=== PATIENT | male | born 1955 | race Caucasian/White ===

== ENCOUNTER 2023-02-08 06:55 | Day surgery (SDC) | payer BC, OTHER ==
[2023-02-08] MEDS ORDERED: Epinephrine Preservative Free 1 MG/ML IJ ONE (06:56)
[2023-02-08] MEDS ORDERED: BETADINE 5% OPHTHALMIC 30 ML OP ONE (07:00)
[2023-02-08] MEDS ORDERED: cefUROXime sodium 0.005 GM in Sodium Chloride Flush 30 ML*** 0.5 ML IJ ONE (07:00)
[2023-02-08] MEDS ORDERED: NON-FORMULARY ITEM OP ONE (07:00)
[2023-02-08] MEDS ORDERED: TETRACAINE 0.5% STERI-UNIT SOL OP ONE ×2 (07:00)
[2023-02-08] MEDS ORDERED: Ak-Dilate OPHTHALMIC*** 1.065 ML, Cyclogyl 1% OPHTH SOL 1.065 ML, GATIFLOXACIN 0.5% OPH... OP ONE ×4 (07:00)
[2023-02-08] MEDS ORDERED: Lactated Ringers 1,000 ML IV SCH (07:00)
[2023-02-08] MEDS ORDERED: Lactated Ringers 1,000 ML IV ONE (07:14)
[2023-02-08] MEDS ORDERED: DIPRIVAN 200 MG/20 ML IV ONE ×2 (08:36→10:05)
[2023-02-08] MEDS ORDERED: Zofran 4 MG/2 ML VIAL IV PRN (09:00)
[2023-02-08] MEDS ORDERED: ACETAZOLAMIDE 250 MG TABLET PO ONE (09:00)
[2023-02-08 10:33] VITALS: O2SAT 94
[2023-02-08 10:46] VITALS: BP 134/83; PULSE 71
== END 2023-02-08 10:45 | disposition home or self-care (01) ==
LOC: SDC 06:55
PROVIDERS: ATTEND Ophthalmology
DX: H25.811 Combined forms of age-related cataract, right eye (principal); E11.9 Type 2 diabetes mellitus without complications
CPT/HCPCS: 82947; C1780; J0171; J2704; A9270-GY

== ENCOUNTER 2023-03-08 07:15 | Day surgery (SDC) | payer OTHER ==
[~2023-03-08 07:15] MED LIST: ACETAZOLAMIDE 250 MG TABLET PO ONE; Ak-Dilate OPHTHALMIC*** 1.065 ML, Cyclogyl 1% OPHTH SOL 1.065 ML, GATIFLOXACIN 0.5% OPH... OP ONE; BETADINE 5% OPHTHALMIC 30 ML OP ONE; Lactated Ringers 1,000 ML IV SCH; NON-FORMULARY ITEM OP ONE; TETRACAINE 0.5% STERI-UNIT SOL OP ONE; Zofran 4 MG/2 ML VIAL IV PRN; cefUROXime sodium 0.005 GM in Sodium Chloride Flush 30 ML*** 0.5 ML IJ ONE
[2023-03-08] MEDS ORDERED: Lactated Ringers 1,000 ML IV ONE (08:14)
[2023-03-08] MEDS ORDERED: DIPRIVAN 200 MG/20 ML IV ONE (09:57)
[2023-03-08] MEDS ORDERED: SUBLIMAZE 100 MCG/2 ML ONE (09:57)
[2023-03-08] MEDS ORDERED: Versed 2 MG/2 ML Injection ONE (09:57)
[2023-03-08] MEDS ORDERED: Xylocaine-Mpf 2% 5 Ml Vial ONE (09:57)
[2023-03-08 10:38] VITALS: BP 107/70; PULSE 60; O2SAT 96
== END 2023-03-08 10:45 | disposition home or self-care (01) ==
LOC: SDC 07:15
PROVIDERS: ATTEND Ophthalmology
DX: H25.812 Combined forms of age-related cataract, left eye (principal); E11.9 Type 2 diabetes mellitus without complications
CPT/HCPCS: 82947; C1780; J2250; J2704; J3010; A9270-GY

== ENCOUNTER 2023-05-23 09:05 | Day surgery (SDC) | payer OTHER ==
--- NOTE | 2023-05-23 08:12 | HP ---
DATE OF SURGERY: 05/23/2023 HISTORY OF PRESENT ILLNESS: The patient is a 67-year-old last colonoscopy eight to ten years ago. No bloody stools. No change in bowel habits. No new pain. Family history negative for colon cancer. The patient is in need of screening colonoscopy. PAST MEDICAL HISTORY: Diabetes mellitus type II, hyperlipidemia, gout. PAST SURGICAL HISTORY: Cholecystectomy. Cataract. Colonoscopy. Back surgery. MEDICATIONS: Aspirin, metformin, Lantus, Jardiance, atorvastatin, Alogliptin, fish oil, allopurinol. ALLERGIES: NKDA. FAMILY HISTORY: Negative for colon cancer. SOCIAL HISTORY: History of smoking, occasional alcohol use. REVIEW OF SYSTEMS: Fourteen systems reviewed. No chest pain or palpitations. Other systems negative or noncontributory as above and per preadmission questionnaire. PHYSICAL EXAMINATION: Height 5'7". BMI 28. GENERAL: No acute distress. HEENT: Sclerae nonicteric. EOMI. Oral mucous membranes moist. NECK: No JVD. CHEST: Equal excursion, nonlabored breathing. CVS: Regular rate and rhythm. ABDOMEN: Soft. No peritoneal signs. EXTREMITIES: No significant edema. NEURO: Alert, oriented, moving extremities symmetrically. RECTAL: Deferred timed to endoscopy exam. PSYCH: Appropriate mood and affect. SKIN: Dry. IMPRESSION: Need screening colonoscopy. I feel the patient is a candidate. Shown the risk sheet explained the procedure in detail including but not limited to bleeding or infection, risk of bowel injury or perforation, risk of missed, nondiagnosis or incomplete exam possibly requiring barium enema, other studies or procedures. General risk of anesthesia or sedation, risk of bowel prep but not limited to. Consent was obtained. Will proceed with outpatient screening colonoscopy. Allow patient to continue medications for his diabetes, lipids and gout.
[2023-05-23 09:24] VITALS: RESP 18
[2023-05-23] MEDS ORDERED: Lactated Ringers 1,000 ML IV ONE (09:52)
[2023-05-23] MEDS ORDERED: Lactated Ringers 1,000 ML IV SCH (10:00)
[2023-05-23] MEDS ORDERED: Versed 2 MG/2 ML Injection ONE (10:49)
[2023-05-23] MEDS ORDERED: DIPRIVAN 200 MG/20 ML IV ONE (10:49)
[2023-05-23 11:39] VITALS: O2SAT 98
[2023-05-23 11:49] VITALS: TEMP 97
[2023-05-23 12:06] VITALS: BP 124/69; PULSE 59
--- NOTE | 2023-05-23 13:22 | OP ---
SURGERY DATE/TIME: 05/23/2023 1053 PREOPERATIVE DIAGNOSIS: Need for screening colonoscopy. POSTOPERATIVE DIAGNOSES: 1) Diverticulosis left colon. 2) Patchy area of inflammation versus prep irritation sigmoid colon. 3) Good prep. 4) ASA Class II. 5) Withdrawal time was approximately 7 minutes. PROCEDURES: Colonoscopy to cecum with random cold biopsies patchy area of inflammation versus prep irritation sigmoid colon. SURGEON: Dr. Juan Bearden. ANESTHESIA: MAC. ESTIMATED BLOOD LOSS: Minimal. INDICATIONS: As noted above. Risks and benefits explained in detail but not limited to and consent obtained. DESCRIPTION OF PROCEDURE AND FINDINGS: The patient is taken to the endoscopy room. MAC anesthesia induced. After official time out and no disagreement with planned procedure, digital rectal exam did not reveal any rectal masses. He did have some small internal hemorrhoids. Video colonoscope inserted and passed up through the tortuous sigmoid, descending, transverse and ascending colon around to the cecum. Appendiceal orifice and ileocecal valve well visualized and photo documented. Prep overall was good. There was a little bit of liquidy stool that was suctioned as clear as possible. The scope is carefully withdrawn over the next 7 minutes. There were no signs of any large polyps, masses or obstructing lesions. He did have some patchy areas and a little petechial red spots in the sigmoid colon. Patchy area of inflammation versus prep irritation some random cold biopsies were taken in this area. Otherwise, he had some diverticulosis in the left colon and some small and large diverticula in the left colon. There were no signs of any large polyps, masses or any other obstructing lesion. There were some small internal hemorrhoids in the rectum. The scope is withdrawn. The patient tolerated the procedure well. Findings discussed with the family out in the waiting area. I will see him back in the office next week.
== END 2023-05-23 12:08 | disposition home or self-care (01) ==
LOC: SDC 09:05
PROVIDERS: ATTEND Surgery
DX: Z12.11 Encounter for screening for malignant neoplasm of colon (principal); K57.30 Diverticulosis of large intestine without perforation or abscess without bleeding; E11.9 Type 2 diabetes mellitus without complications; K64.8 Other hemorrhoids; K63.5 Polyp of colon
CPT/HCPCS: 82947; J2250; J2704

== ENCOUNTER 2023-09-08 18:00 | Emergency (ER) | payer OTHER ==
[2023-09-08 18:22] VITALS: TEMP 97.7
--- NOTE | 2023-09-08 18:30 | ERPHSYRPT ---
- History of Present Illness Time Seen by Provider: 09/08/23 18:30 Source: patient Exam Limitations: no limitations Patient Subjective Stated Complaint: Pt states "I stepped on a nail yesterday." Triage Nursing Assessment: Pt presented alert and oriented X3, skin pwd. Pt has small puncture wound noted to right dorsal foot, no bleeding noted. Physician History: This is a 67-year-old white male patient who is diabetic and has not had a tetanus injection in over 10 years and presents to the emergency department a day after stepping on a nail. Patient is concerned of him getting an infection. He does not feel there is any retained nail present. Again, he is diabetic, has history of gout, has a history of hyperlipidemia. Method of Injury: other (Stepped on a nail yesterday.) Occurred: yesterday Quality: aching Severity of Pain-Max: mild Severity of Pain-Current: mild Lower Extremities Pain: foot: right (Plantar surface) Modifying Factors: Improves With: nothing Associated Symptoms: none Allergies/Adverse Reactions: No Known Drug Allergies Allergy (Verified 04/28/23 12:45) Home Medications: Allopurinol 300 mg [Zyloprim 300 mg] 1 tab PO DAILY 02/02/23 [History] Atorvastatin Calcium [Lipitor 40Mg] 1 tab PO DAILY 02/02/23 [History] Insulin Glargine [Lantus Insulin] See Rx Instructions .ROUTE .COMPLEX 02/02/23 [History] Loperamide HCl 2 mg [Imodium 2 mg] 1 tab PO DAILY 02/02/23 [History] Metformin HCl [Metformin ER Osmotic] 1 tab PO BID 02/02/23 [History] [place]-3S/Dha/Epa/Fish Oil [Fish Oil [place]-3 Softgel] 2 cap PO BID 02/02/23 [History] Alogliptin Benzoate [Alogliptin] 1 tab PO DAILY 04/28/23 [History] Aspirin EC 81 mg [Ecotrin 81 mg] 81 mg PO DAILY 04/28/23 [History] Hx Tetanus, Diphtheria Vaccination/Date Given: No Hx Influenza Vaccination/Date Given: No Hx Pneumococcal Vaccination/Date Given: No Immunizations Up to Date: No Travel Risk - International Travel Have you traveled outside of the country in past 3 weeks: No - Coronavirus Screening Are you exhibiting any of the following symptoms?: No Close contact with a COVID-19 positive Pt in past 14-21 Days: No - Vaccine Status Have you recieved a Covid-19 vaccination: Yes Program Support Assistant: Moderna - Vaccination Dates Date of 2cond Vaccination (if applicable): 2020 - Review of Systems Constitutional: No Symptoms Eyes: No Symptoms Ears, Nose, & Throat: No Symptoms Respiratory: No Symptoms Cardiac: No Symptoms Abdominal/Gastrointestinal: No Symptoms Genitourinary Symptoms: No Symptoms Musculoskeletal: No Symptoms Skin: Other (Right foot plantar surface nail entrance site) Neurological: No Symptoms Psychological: No Symptoms Endocrine: No Symptoms Hematologic/Lymphatic: No Symptoms Immunological/Allergic: No Symptoms All Other Systems: Reviewed and Negative - Past Medical History Pertinent Past Medical History: Yes Neurological History: No Pertinent History ENT History: No Pertinent History Cardiac History: No Pertinent History Respiratory History: Sleep Apnea Endocrine Medical History: Diabetes Type II Musculoskeletal History: No Pertinent History GI Medical History: Gallbladder Disease History: No Pertinent History Psycho-Social History: No Pertinent History Male Reproductive Disorders: No Pertinent History - Past Surgical History Past Surgical History: Yes Neuro Surgical History: No Pertinent History Cardiac: No Pertinent History Respiratory: No Pertinent History Gastrointestinal: Cholecystectomy Genitourinary: No Pertinent History Musculoskeletal: Orthopedic Surgery Male Surgical History: No Pertinent History Other Surgical History: back surgery 2009 - Social History Smoking Status: Light tobacco smoker Exposure to second hand smoke: Yes Drug Use: none Patient Lives Alone: Yes - Nursing Vital Signs Nursing Vital Signs: Initial Vital Signs Temperature 97.7 F 09/08/23 18:18 Pulse Rate 74 09/08/23 18:18 Respiratory Rate 20 09/08/23 18:18 Blood Pressure 101/64 09/08/23 18:18 O2 Sat by Pulse Oximetry 97 09/08/23 18:18 Pain Scale Pain Intensity 2 - Physical Exam General Appearance: no apparent distress, alert Eyes, Ears, Nose, Throat Exam: normal ENT inspection, moist mucous membranes Neck Exam: normal inspection, non-tender, supple, full range of motion Cardiovascular/Respiratory Exam: chest non-tender, no respiratory distress Gastrointestinal/Abdominal Exam: non-tender Back Exam: normal inspection, normal range of motion, vertebral tenderness, No CVA tenderness Hips Exam: bilateral: non-tender, normal inspection, normal range of motion, no evidence of injury Legs Exam: bilateral leg: non-tender, normal inspection, normal range of motion, no evidence of injury Knees Exam: bilateral knee: non-tender, normal inspection, normal range of motion, no evidence of injury Ankle Exam: bilateral ankle: non-tender, normal inspection, normal range of motion, no evidence of injury Foot Exam: right foot: soft tissue tenderness (Plantar surface lateral aspect base of fifth digit. Nail entrance site without gross infection. No visible foreign body), left foot: non-tender, normal inspection, no evidence of injury, bilateral foot: normal range of motion Neuro/Tendon Exam: normal sensation, normal motor functions, normal tendon functions, responds to pain, no evidence tendon injury Mental Status Exam: alert, oriented x 3, cooperative Skin Exam: other (See above) SpO2 Interpretation: normal SpO2: 97 O2 Delivery: Room Air - Course Nursing assessment & vital signs reviewed: Yes Ordered Tests: Active Orders 24 hr Category Date Time Status FOOT (MINIMUM 3 VIEWS) Stat Exams 09/08/23 18:30 Taken - Progress Progress: unchanged Progress Note: 09/08/23 18:53 This medical issue is 1 of low complexity. Level of complexity in the work-up performed is based on review of the patient's past medical history, review the patient's medication list, review the patient drug allergy list, history present illness and physical findings on examination. The work-up in this patient includes injection of Adacel, provide the patient with oral Keflex, x-ray of right foot. X-ray of right foot was interpreted by me. There is no evidence of any acute fracture or dislocation. There is no evidence of any radiopaque foreign body. Counseled pt/family regarding: diagnosis, need for follow-up, rad results Medical Desision Making - Diagnostic Testing Diagnostic test were ordered, analyzed, and reviewed by me: Yes Radiological Interpretation: Interpreted by me - Risk of complications The pt has a mod risk of morbidity or mortality based on: Need for prescription drug management - Departure Departure Disposition: Home Clinical Impression: Right foot injury Condition: Stable Critical Care Time: No Referrals: [facility]OSPITAL,'[facility] [Primary Care Provider] - Follow up/PCP as directed Additional Instructions: Soak right foot in warm soapy water or Epsom salt twice a day. Do not apply lotions ointments or creams to the nail penetration site. Take your antibiotics as prescribed. Use Tylenol and ibuprofen for pain control if there are no contraindications. Follow-up with your primary care provider in the next 3 to 5 days for reevaluation. Prescriptions: Cephalexin Mh 500 mg [Keflex 500 mg] 500 mg PO TID #21 cap
[2023-09-08] MEDS ORDERED: Adacel Vial IM ONE ×2 (18:52→18:55)
[2023-09-08] MEDS ORDERED: KEFLEX 500 MG PO ONE (18:52)
[2023-09-08] MEDS ORDERED: KEFLEX 500 MG ONE (18:54)
[2023-09-08 19:24] VITALS: BP 123/62; PULSE 75; RESP 20; O2SAT 97
--- NOTE | 2023-09-09 08:42 | XRAY ---
Indication: Stepped on nail. Comparison: None 3 nonweightbearing views right foot demonstrates osteopenia, small posterior/plantar heel spurs, and minimal scattered vascular calcifications. No other bony, articular, or soft tissue abnormalities.
== END 2023-09-08 19:13 | disposition home or self-care (01) ==
LOC: ED 18:00
DX: S91.331A Puncture wound without foreign body, right foot, initial encounter (principal); W22.09XA Striking against other stationary object, initial encounter; W45.0XXA Nail entering through skin, initial encounter; E11.9 Type 2 diabetes mellitus without complications; E78.5 Hyperlipidemia, unspecified; Z79.4 Long term (current) use of insulin; Z79.84 Long term (current) use of oral hypoglycemic drugs; Z79.899 Other long term (current) drug therapy; Z72.0 Tobacco use; Z23 Encounter for immunization
CPT/HCPCS: 73630; 90471; 90715; 99283; A9270-GY

== ENCOUNTER 2023-09-12 15:18 | Observation (INO) | payer OTHER ==
--- NOTE | 2023-09-12 15:29 | ERPHSYRPT ---
- History of Present Illness Time Seen by Provider: 09/12/23 15:28 Source: patient Exam Limitations: no limitations Physician History: This is a 67-year-old white male patient known to me who presented to the emergency department on 09/08/2023 and I evaluated him at that time. At that time he had stepped on a nail the day before on his right plantar surface. We performed an x-ray which showed no fracture and no dislocation and no radiopaque foreign body present. Patient received a dose of Keflex antibiotics here in the emergency department but did not fill the remainder of the prescription until 24 hours later. Patient states that the foot seems to be doing fine until Tuesday when he noticed some redness that is increased despite antibiotic therapy of the subsequent 2 days which is today. He does have some pain sensation present there is increased redness and swelling to the right foot. Patient has a history of diabetes, gout and hyperlipidemia. Occurred: days ago (5) Quality: sharpness Severity of Pain-Max: mild Severity of Pain-Current: mild Lower Extremities Pain: foot: right Modifying Factors: Improves With: nothing Associated Symptoms: none Allergies/Adverse Reactions: No Known Drug Allergies Allergy (Verified 09/12/23 15:32) Home Medications: Allopurinol 300 mg [Zyloprim 300 mg] 1 tab PO DAILY 02/02/23 [History] Atorvastatin Calcium [Lipitor 40Mg] 1 tab PO DAILY 02/02/23 [History] Insulin Glargine [Lantus Insulin] See Rx Instructions .ROUTE .COMPLEX 02/02/23 [History] Loperamide HCl 2 mg [Imodium 2 mg] 1 tab PO DAILY 02/02/23 [History] Metformin HCl [Metformin ER Osmotic] 1 tab PO BID 02/02/23 [History] [place]-3S/Dha/Epa/Fish Oil [Fish Oil [place]-3 Softgel] 2 cap PO BID 02/02/23 [H istory] Alogliptin Benzoate [Alogliptin] 1 tab PO DAILY 04/28/23 [History] Aspirin EC 81 mg [Ecotrin 81 mg] 81 mg PO DAILY 04/28/23 [History] Hx Tetanus, Diphtheria Vaccination/Date Given: No Hx Influenza Vaccination/Date Given: No Hx Pneumococcal Vaccination/Date Given: No Travel Risk - International Travel Have you traveled outside of the country in past 3 weeks: No - Coronavirus Screening Are you exhibiting any of the following symptoms?: No Close contact with a COVID-19 positive Pt in past 14-21 Days: No - Vaccine Status Have you recieved a Covid-19 vaccination: Yes Program Paraprofessional: Moderna - Vaccination Dates Date of 2cond Vaccination (if applicable): 2020 - Review of Systems Constitutional: No Symptoms Eyes: No Symptoms Ears, Nose, & Throat: No Symptoms Respiratory: No Symptoms Cardiac: No Symptoms Abdominal/Gastrointestinal: No Symptoms Genitourinary Symptoms: No Symptoms Musculoskeletal: No Symptoms Skin: Cellulitis, Other Neurological: No Symptoms (Diabetic foot infection) Psychological: No Symptoms Endocrine: No Symptoms Hematologic/Lymphatic: No Symptoms Immunological/Allergic: No Symptoms All Other Systems: Reviewed and Negative - Past Medical History Pertinent Past Medical History: Yes Neurological History: No Pertinent History ENT History: No Pertinent History Cardiac History: No Pertinent History Respiratory History: Sleep Apnea Endocrine Medical History: Diabetes Type II Musculoskeletal History: No Pertinent History GI Medical History: Gallbladder Disease History: No Pertinent History Psycho-Social History: No Pertinent History Male Reproductive Disorders: No Pertinent History - Past Surgical History Past Surgical History: Yes Neuro Surgical History: No Pertinent History Cardiac: No Pertinent History Respiratory: No Pertinent History Gastrointestinal: Cholecystectomy Genitourinary: No Pertinent History Musculoskeletal: Orthopedic Surgery Male Surgical History: No Pertinent History Other Surgical History: back surgery 2009 - Social History Smoking Status: Light tobacco smoker Exposure to second hand smoke: Yes Drug Use: none Patient Lives Alone: Yes - Nursing Vital Signs Nursing Vital Signs: Initial Vital Signs Temperature 97.7 F 09/12/23 15:33 Pulse Rate 78 09/12/23 15:33 Respiratory Rate 18 09/12/23 15:33 Blood Pressure 162/92 09/12/23 15:33 O2 Sat by Pulse Oximetry 98 09/12/23 15:33 Pain Scale Pain Intensity 3 - Physical Exam General Appearance: no apparent distress, alert Eyes, Ears, Nose, Throat Exam: normal ENT inspection, moist mucous membranes Neck Exam: normal inspection, non-tender, supple, full range of motion Cardiovascular/Respiratory Exam: chest non-tender, no respiratory distress Gastrointestinal/Abdominal Exam: non-tender Back Exam: normal inspection, normal range of motion, No CVA tenderness, No vertebral tenderness Hips Exam: bilateral: non-tender, normal inspection, normal range of motion, no evidence of injury Legs Exam: bilateral leg: non-tender, normal inspection, normal range of motion, no evidence of injury Knees Exam: bilateral knee: non-tender, normal inspection, normal range of mo tion, no evidence of injury Ankle Exam: bilateral ankle: non-tender, normal inspection, normal range of motion, no evidence of injury Foot Exam: right foot: infection, soft tissue tenderness, swelling, other (No drainage and no odor present.), left foot: non-tender, normal inspection, normal range of motion, no evidence of injury Neuro/Tendon Exam: normal motor functions, normal tendon functions, no evidence tendon injury, sensory deficit (Patient likely has degree of peripheral neuropathy secondary to longstanding diabetes) Mental Status Exam: alert, oriented x 3, cooperative Skin Exam: other SpO2 Interpretation: normal (Colitis right foot) O2 Delivery: Room Air - Course Nursing assessment & vital signs reviewed: Yes Ordered Tests: Active Orders 24 hr Category Date Time Status IV Insertion STAT Care 09/12/23 15:36 Active Pulse Oximetry (ED) STAT Care 09/12/23 15:36 Active BLOOD CULTURE Stat Lab 09/12/23 16:08 Received CBC W DIFF Stat Lab 09/12/23 15:50 Completed CMP Stat Lab 09/12/23 15:50 Completed Lactic Acid Stat Lab 09/12/23 16:00 Completed PROCALCITONIN Stat Lab 09/12/23 15:50 Completed Transfer Order Routine Transfer 09/12/23 Ordered Lab/Rad Data: Laboratory Result Diagrams 09/12/23 15:50 09/12/23 15:50 Laboratory Results 09/12/23 09/12/23 09/12/23 Range/Units 16:00 15:50 15:50 WBC (4.0-10.5) x10^3/uL RBC (4.1-5.6) x10^6/uL Hgb (12.5-18.0) g/dL Hct (42-50) % MCV (78-100) fL MCH (26-32) pg MCHC (32-36) g/dL RDW (11.5-14.0) % Plt Count (150-450) x10^3/uL MPV (7.5-11.0) fL Gran % (36.0-66.0) % Immature Gran % (Auto) (0.00-0.4) % Nucleat RBC Rel Count (0.00-0.1) % Eos # (Auto) (0-0.5) x10^3/uL Immature Gran # (Auto) (0.00-0.03) x10^3u/L Absolute Lymphs (auto) (1.0-4.6) x10^3/uL Absolute Monos (auto) (0.0-1.3) x10^3/uL Absolute Nucleated RBC (0.00-0.01) x10^3u/L Lymphocytes % (24.0-44.0) % Monocytes % (0.0-12.0) % Eosinophils % (0.00-5.0) % Basophils % (0.0-0.4) % Absolute Granulocytes (1.4-6.9) x10^3/uL Basophils # (0-0.4) x10^3/uL Sodium 141 (137-145) mmol/L Potassium 4.4 (3.5-5.1) mmol/L Chloride 109 H (98-107) mmol/L Carbon Dioxide 19 L (22-30) mmol/L Anion Gap 17.4 H (5-15) MEQ/L BUN 19 (9-20) mg/dL Creatinine 0.90 (0.66-1.25) mg/dL Estimated GFR 93.6 ML/MIN Glucose 164 H (74-106) mg/dL Lactic Acid 1.0 (0.4-2.0) Calcium 9.6 (8.4-10.2) mg/dL Total Bilirubin 0.80 (0.2-1.3) mg/dL AST 28 (17-59) U/L ALT 21 (0-50) U/L Alkaline Phosphatase 95 (38-126) U/L Serum Total Protein 8.0 (6.3-8.2) g/dL Albumin 4.3 (3.5-5.0) g/dL Procalcitonin 0.123 H (0.030-0.080) ng/mL 09/12/23 Range/Units 15:50 WBC 9.8 (4.0-10.5) x10^3/uL RBC 4.00 L (4.1-5.6) x10^6/uL Hgb 13.1 (12.5-18.0) g/dL Hct 38.3 L (42-50) % MCV 95.8 (78-100) fL MCH 32.8 H (26-32) pg MCHC 34.2 (32-36) g/dL RDW 13.7 (11.5-14.0) % Plt Count 223 (150-450) x10^3/uL MPV 10.4 (7.5-11.0) fL Gran % 62.8 (36.0-66.0) % Immature Gran % (Auto) 0.3 (0.00-0.4) % Nucleat RBC Rel Count 0.0 (0.00-0.1) % Eos # (Auto) 0.22 (0-0.5) x10^3/uL Immature Gran # (Auto) 0.03 (0.00-0.03) x10^3u/L Absolute Lymphs (auto) 2.46 (1.0-4.6) x10^3/uL Absolute Monos (auto) 0.89 (0.0-1.3) x10^3/uL Absolute Nucleated RBC 0.00 (0.00-0.01) x10^3u/L Lymphocytes % 25.1 (24.0-44.0) % Monocytes % 9.1 (0.0-12.0) % Eosinophils % 2.2 (0.00-5.0) % Basophils % 0.5 (0.0-0.4) % Absolute Granulocytes 6.17 (1.4-6.9) x10^3/uL Basophils # 0.05 (0-0.4) x10^3/uL Sodium (137-145) mmol/L Potassium (3.5-5.1) mmol/L Chloride (98-107) mmol/L Carbon Dioxide (22-30) mmol/L Anion Gap (5-15) MEQ/L BUN (9-20) mg/dL Creatinine (0.66-1.25) mg/dL Estimated GFR ML/MIN Glucose (74-106) mg/dL Lactic Acid (0.4-2.0) Calcium (8.4-10.2) mg/dL Total Bilirubin (0.2-1.3) mg/dL AST (17-59) U/L ALT (0-50) U/L Alkaline Phosphatase (38-126) U/L Serum Total Protein (6.3-8.2) g/dL Albumin (3.5-5.0) g/dL Procalcitonin (0.030-0.080) ng/mL - Progress Progress: unchanged Progress Note: 09/12/23 16:38 This patient's medical issue is 1 of high complexity. Level complexity in the work-up performed is based on the review of the patient's past medical history, review of the patient's medication list, review of the patient's drug allergy list, history of present illness and physical findings on examination. Work-up in this patient includes placement of an intravenous line, infusion of Levaquin antibiotic, CBC, CMP, blood culture, lactic acid level and procalcitonin level. This patient is going to require placement in observation. He has failed outpatient medical therapy. Once we have all the lab work returned and evaluated and interpreted, I will contact the telehospitalist on-call and placed this patient in observation. 09/12/23 17:09 I reviewed the laboratory data results and interpreted them on this patient. Patient has an elevated procalcitonin consistent with the presence of an infection. He has mild hyperglycemia. Patient failed outpatient therapy and therefore, in my view, necessitates at least placement in observation. This patient receives his care at the [facility]. We will contact them to see if they want to transfer the patient to their facility or would authorize jaziel cement into observation in our facility. 09/12/23 17:51 I spoke with telehospitalist Dr. Shah. I reviewed the patient history, patient presenting complaint and physical findings. I also discussed the results of the lab work. The [facility] authorized patient staying in our facility. The telehospitalist agrees to place this patient in observation. Counseled pt/family regarding: lab results, diagnosis Medical Desision Making - Diagnostic Testing Diagnostic test were ordered, analyzed, and reviewed by me: Yes - Risk of complications The pt has a high risk of morbidity or mortality based on: Decision regarding hospitilization or escalation of hosp level of care - Departure Departure Disposition: Observation Clinical Impression: Cellulitis of foot, Diabetic foot infection Condition: Stable Critical Care Time: No Referrals: HOSPITAL,'S [Primary Care Provider] - Follow up/PCP as directed
[2023-09-12 16:18] LABS: Absolute Neutrophil Ct (ANC) 6.17 x10^3/uL (1.4-6.9); BASOPHIL % 0.5 % (0.0-0.4); Basophil (Absolute #) 0.05 x10^3/uL (0-0.4); Eosinophil % 2.2 % (0.00-5.0); Eosinophil (Absolute #) 0.22 x10^3/uL (0-0.5); Hematocrit 38.3 % (42-50); Hemoglobin 13.1 g/dL (12.5-18.0); IMMATURE GRAN # 0.03 x10^3u/L (0.00-0.03); IMMATURE GRAN % 0.3 % (0.00-0.4); Lymphocyte (Absolute #) 2.46 x10^3/uL (1.0-4.6); Lymphocytes % 25.1 % (24.0-44.0); Mean Cell Volume 95.8 fL (78-100); Mean Corpuscular Hemoglobin 32.8 pg (26-32); Mean Corpuscular Hgb Concent. 34.2 g/dL (32-36); Mean Platelet Volume 10.4 fL (7.5-11.0); Monocyte (Absolute #) 0.89 x10^3/uL (0.0-1.3); Monocytes % 9.1 % (0.0-12.0); Neutrophil % 62.8 % (36.0-66.0); Platelet Count 223 x10^3/uL (150-450); Red Cell Distribution Width 13.7 % (11.5-14.0); White Blood Count 9.8 x10^3/uL (4.0-10.5)
[2023-09-12 16:32] LABS: ALBUMIN 4.3 g/dL (3.5-5.0); ANION GAP 17.4 MEQ/L (5-15); BILIRUBIN,TOTAL 0.8 mg/dL (0.2-1.3); Calcium 9.6 mg/dL (8.4-10.2); Creatinine 1 0.9 mg/dL (0.66-1.25); EST GLOMERULAR FILTRATION RATE 93.6 ML/MIN; Potassium 4.4 mmol/L (3.5-5.1)
[2023-09-12] MEDS ORDERED: Levofloxacin 500MG/100ML D5W 500 MG/100 ML BAG IV STA (18:00)
[2023-09-12] MEDS ORDERED: Levofloxacin 500MG/100ML D5W 500 MG/100 ML BAG IV ONE (18:02)
[2023-09-12] MEDS ORDERED: Zofran 4 MG/2 ML VIAL IV PRN (18:07)
[2023-09-12] MEDS: Sodium Chloride 0.9% 1000 ML 1,000 ML IV SCH (19:24)
--- NOTE | 2023-09-12 20:24 | PCM.HP ---
History of Present Illness - Chief Complaint Chief Complaint: Cellulitis on right foot Date: 09/12/23 History of Present Illness: Mr. Alarcon is a 67 year old male with a past medical history significant for diabetes since 2004, gout, and hyperlipidemia who initially presented to the ER back on Sep 08 after stepping on a nail from an exposed floorboard at his house. He was given a tetanus shot, one dose of Keflex and prescribed more Keflex but did not fill it until the following day. He took it for two days, but felt as if the foot was getting worse, so he came back to the ER. He was given Levaquin and recommended for admission for further evaluation. He denies any fever, chills, or pain, but does not increasing erythema and some swelling. - Review of Systems Constitutional: No Symptoms Eyes: No Symptoms Ears, Nose, & Throat: No Symptoms Respiratory: No Symptoms Cardiac: No Symptoms Abdominal/Gastrointestinal: No Symptoms Genitourinary Symptoms: No Symptoms Musculoskeletal: No Symptoms Skin: No Symptoms, Skin Lesions Psychological: No Symptoms Endocrine: No Symptoms Hematologic/Lymphatic: No Symptoms Immunological/Allergic: No Symptoms Medications & Allergies Home Medications: Home Medication List Allopurinol 300 mg [Zyloprim 300 mg] 1 tab PO DAILY 02/02/23 [History Confirmed 09/12/23] Atorvastatin Calcium [Lipitor 40Mg] 1 tab PO DAILY 02/02/23 [History Confirmed 09/12/23] Insulin Glargine [Lantus Insulin] See Rx Instructions .ROUTE .COMPLEX 02/02/23 [History Confirmed 09/12/23] Loperamide HCl 2 mg [Imodium 2 mg] 1 tab PO DAILY 02/02/23 [History Confirmed 09/12/23] Metformin HCl [Metformin ER Osmotic] 1 tab PO BID 02/02/23 [History Confirmed 09/12/23] Sanger-3S/Dha/Epa/Fish Oil [Fish Oil Sanger-3 Softgel] 2 cap PO BID 02/02/23 [History Confirmed 09/12/23] Alogliptin Benzoate [Alogliptin] 1 tab PO DAILY 04/28/23 [History Confirmed 09/12/23] Aspirin EC 81 mg [Ecotrin 81 mg] 81 mg PO DAILY 04/28/23 [History Confirmed 09/12/23] Cephalexin Mh 500 mg [Keflex 500 mg] 500 mg PO TID #21 cap 09/08/23 [Rx Confirmed 09/12/23] Allergies/Adverse Reactions: Allergies Allergy/AdvReac Type Severity Reaction Status Date / Time No Known Drug Allergies Allergy Verified 09/12/23 15:32 - Past Medical History Past Medical History: No Neurological History: No Pertinent History ENT History: Cataracts Cardiac History: High Cholesterol, Hypertension Respiratory History: No Pertinent History Endocrine Medical History: Diabetes Type II Musculoskelatal History: No Pertinent History GI Medical History: No Pertinent History History: No Pertinent History Pyscho-Social History: No Pertinent History Male Reproductive Disorders: No Pertinent History - Past Surgical History Past Surgical History: Yes Neuro Surgical History: No Pertinent History Cardiac History: No Pertinent History Respiratory Surgery: No Pertinent History GI Surgical History: No Pertinent History Genitourinary Surgical Hx: No Pertinent History Musculskeletal Surgical Hx: No Pertinent History Male Surgical History: No Pertinent History Other Surgical History: back surgery d/t infection - Social History Smoking Status: Light tobacco smoker Exposure to second hand smoke: Yes Alcohol: Rarely Drug Use: none - Physical Exam Vital Signs: Vital Signs - 24 hr Temp Pulse Resp BP Pulse Ox 09/12/23 18:23 98.5 F 71 18 146/69 97 09/12/23 15:48 98 09/12/23 15:33 97.7 F 78 18 162/92 98 General Appearance: no apparent distress Neurologic Exam: alert, oriented x 3 Ears, Nose, Throat Exam: moist mucous membranes Neck Exam: supple Respiratory Exam: normal breath sounds Cardiovascular Exam: regular rate/rhythm Gastrointestinal/Abdomen Exam: soft, No tenderness Extremity Exam: inflammation, swelling Skin Exam: warm Results - Labs Lab/Micro Results: Lab Results-Last 24 Hours 09/12/23 09/12/23 09/12/23 Range/Units 15:50 15:50 15:50 WBC 9.8 (4.0-10.5) x10^3/uL RBC 4.00 L (4.1-5.6) x10^6/uL Hgb 13.1 (12.5-18.0) g/dL Hct 38.3 L (42-50) % MCV 95.8 (78-100) fL MCH 32.8 H (26-32) pg MCHC 34.2 (32-36) g/dL RDW 13.7 (11.5-14.0) % Plt Count 223 (150-450) x10^3/uL MPV 10.4 (7.5-11.0) fL Gran % 62.8 (36.0-66.0) % Immature Gran % (Auto) 0.3 (0.00-0.4) % Nucleat RBC Rel Count 0.0 (0.00-0.1) % Eos # (Auto) 0.22 (0-0.5) x10^3/uL Immature Gran # (Auto) 0.03 (0.00-0.03) x10^3u/L Absolute Lymphs (auto) 2.46 (1.0-4.6) x10^3/uL Absolute Monos (auto) 0.89 (0.0-1.3) x10^3/uL Absolute Nucleated RBC 0.00 (0.00-0.01) x10^3u/L Lymphocytes % 25.1 (24.0-44.0) % Monocytes % 9.1 (0.0-12.0) % Eosinophils % 2.2 (0.00-5.0) % Basophils % 0.5 (0.0-0.4) % Absolute Granulocytes 6.17 (1.4-6.9) x10^3/uL Basophils # 0.05 (0-0.4) x10^3/uL Sodium 141 (137-145) mmol/L Potassium 4.4 (3.5-5.1) mmol/L Chloride 109 H (98-107) mmol/L Carbon Dioxide 19 L (22-30) mmol/L Anion Gap 17.4 H (5-15) MEQ/L BUN 19 (9-20) mg/dL Creatinine 0.90 (0.66-1.25) mg/dL Estimated GFR 93.6 ML/MIN Glucose 164 H (74-106) mg/dL POC Glucometer (74 to 106) mg/dL Lactic Acid (0.4-2.0) Calcium 9.6 (8.4-10.2) mg/dL Total Bilirubin 0.80 (0.2-1.3) mg/dL AST 28 (17-59) U/L ALT 21 (0-50) U/L Alkaline Phosphatase 95 (38-126) U/L Serum Total Protein 8.0 (6.3-8.2) g/dL Albumin 4.3 (3.5-5.0) g/dL Prealbumin (17.6-36.0) mg/dL Procalcitonin 0.123 H (0.030-0.080) ng/mL 09/12/23 09/12/23 09/12/23 Range/Units 16:00 16:12 18:12 WBC (4.0-10.5) x10^3/uL RBC (4.1-5.6) x10^6/uL Hgb (12.5-18.0) g/dL Hct (42-50) % MCV (78-100) fL MCH (26-32) pg MCHC (32-36) g/dL RDW (11.5-14.0) % Plt Count (150-450) x10^3/uL MPV (7.5-11.0) fL Gran % (36.0-66.0) % Immature Gran % (Auto) (0.00-0.4) % Nucleat RBC Rel Count (0.00-0.1) % Eos # (Auto) (0-0.5) x10^3/uL Immature Gran # (Auto) (0.00-0.03) x10^3u/L Absolute Lymphs (auto) (1.0-4.6) x10^3/uL Absolute Monos (auto) (0.0-1.3) x10^3/uL Absolute Nucleated RBC (0.00-0.01) x10^3u/L Lymphocytes % (24.0-44.0) % Monocytes % (0.0-12.0) % Eosinophils % (0.00-5.0) % Basophils % (0.0-0.4) % Absolute Granulocytes (1.4-6.9) x10^3/uL Basophils # (0-0.4) x10^3/uL Sodium (137-145) mmol/L Potassium (3.5-5.1) mmol/L Chloride (98-107) mmol/L Carbon Dioxide (22-30) mmol/L Anion Gap (5-15) MEQ/L BUN (9-20) mg/dL Creatinine (0.66-1.25) mg/dL Estimated GFR ML/MIN Glucose (74-106) mg/dL POC Glucometer 143 H (74 to 106) mg/dL Lactic Acid 1.0 (0.4-2.0) Calcium (8.4-10.2) mg/dL Total Bilirubin (0.2-1.3) mg/dL AST (17-59) U/L ALT (0-50) U/L Alkaline Phosphatase (38-126) U/L Serum Total Protein (6.3-8.2) g/dL Albumin (3.5-5.0) g/dL Prealbumin 20.52 (17.6-36.0) mg/dL Procalcitonin (0.030-0.080) ng/mL Assessment/Plan (1) Cellulitis of foot Current Visit: Yes Status: Acute Assessment & Plan: Assessment 1. R foot cellulitis from stepping on nail - failed Keflex, in need of IV antibiotics Plan 1. Will admit to observation status 2. Will start IV Levaquin 500mg IV daily 3. Monitor foot for worsening erythema 4. Monitor cultures Code(s): L03.119 - CELLULITIS OF UNSPECIFIED PART OF LIMB (2) Type 2 diabetes mellitus with diabetic chronic kidney disease Current Visit: Yes Status: Acute Qualifiers: Diabetes mellitus keno terminal operator insulin use: with keno terminal operator use Chronic kidney disease stage: stage 2 (mild) Qualified Code(s): E11.22 - Type 2 diabetes mellitus with diabetic chronic kidney disease; N18.2 - Chronic kidney disease, stage 2 (mild); Z79.4 - terminal make up operator (current) use of insulin Assessment & Plan: 1. Diabetes for 18 years with mild CKD with creatinine 0.9 1. Continue Metformin/Lantus 2. Insulin sliding scale 3. Check urine protein:Cr ratio 4. Monitor blood sugars Code(s): E11.22 - TYPE 2 DIABETES MELLITUS W DIABETIC CHRONIC KIDNEY DISEASE (3) Gout Current Visit: Yes Status: Acute Assessment & Plan: Gout - will continue Allopurinol and check uric acid Code(s): M10.9 - GOUT, UNSPECIFIED Telemedicine Encounter - Telemedicine Encounter Telemedicine Encounter: The entirety of this encounter was performed via Telemedicine"
[2023-09-12] MEDS ORDERED: HUMULIN R SQ PRN (20:26)
[2023-09-12] MEDS: Lantus Insulin SQ SCH (22:23)
[2023-09-12] MEDS: HUMULIN R SQ PRN (22:23)
[2023-09-13 05:09] LABS: Absolute Neutrophil Ct (ANC) 5.46 x10^3/uL (1.4-6.9); BASOPHIL % 0.5 % (0.0-0.4); Basophil (Absolute #) 0.04 x10^3/uL (0-0.4); Eosinophil % 2.3 % (0.00-5.0); Hematocrit 34.3 % (42-50); Hemoglobin 11.8 g/dL (12.5-18.0); IMMATURE GRAN # 0.05 x10^3u/L (0.00-0.03); IMMATURE GRAN % 0.6 % (0.00-0.4); Lymphocyte (Absolute #) 2.18 x10^3/uL (1.0-4.6); Lymphocytes % 24.8 % (24.0-44.0); Mean Cell Volume 94.5 fL (78-100); Mean Corpuscular Hemoglobin 32.5 pg (26-32); Mean Corpuscular Hgb Concent. 34.4 g/dL (32-36); Monocyte (Absolute #) 0.86 x10^3/uL (0.0-1.3); Monocytes % 9.8 % (0.0-12.0); Platelet Count 202 x10^3/uL (150-450); Red Blood Count 3.63 x10^6/uL (4.1-5.6); Red Cell Distribution Width 13.5 % (11.5-14.0); White Blood Count 8.8 x10^3/uL (4.0-10.5)
[2023-09-13 05:32] LABS: ALBUMIN 3.5 g/dL (3.5-5.0); ANION GAP 12.8 MEQ/L (5-15); BILIRUBIN,TOTAL 0.8 mg/dL (0.2-1.3); Creatinine 1 0.76 mg/dL (0.66-1.25); EST GLOMERULAR FILTRATION RATE 98.5 ML/MIN; Potassium 3.9 mmol/L (3.5-5.1); Total Protein 6.8 g/dL (6.3-8.2)
[2023-09-13] MEDS: Glucophage XR 500 MG PO SCH ×2 (08:20→17:08)
[2023-09-13] MEDS ORDERED: Levofloxacin 500MG/100ML D5W 500 MG/100 ML BAG IV SCH (10:00)
[2023-09-13] MEDS: ZYLOPRIM 300 MG PO SCH (10:24)
[2023-09-13] MEDS: Unasyn 3 GM Vial*** 3 G in Sodium Chloride 100ML MINI-BAG PLUS 100 ML IV SCH ×3 (10:25→23:45)
--- NOTE | 2023-09-13 10:41 | XRAY ---
Indication: Cellulitis. Comparison: September 08, 2023 2 nonweightbearing views right foot demonstrates new 5th phalanx/MTP soft tissue swelling presumed clinically reported cellulitis. Also new petechial radiopacities lateral to 5th MTP felt to be external. Stable small heel spurs and scattered vascular calcifications. No other bony, articular, or soft tissue abnormalities.
[2023-09-13 11:16] LABS: CREATININE,URINE RANDOM 118.4 MG/DL
[2023-09-13] MEDS: HUMULIN R SQ PRN (12:27)
[2023-09-13] MEDS: TYLENOL 325 MG PO PRN ×2 (14:39→23:46)
--- NOTE | 2023-09-13 14:43 | PCM.CONS ---
Podiatry HPI - Consult Date of Consultation Date: 09/13/23 Reason for Consult: Diabetic foot ulcer/ puncture injury of foot right with subsequent celluitis. Consulting Provider: JULIÁN CHRISTIE DPM - [facility] History of Present Illness: 67 Yo male with 17 year hx of diabetes mellitus presents with 6 day hx of having stepped on a golden nail in his home. Patient indicates he had a shoe on at the time of puncture He presented to the emergency department and was provided a prescription for keflex and a tetnus prophylaxis. He took this for approximately 2 days but noted his foot was getting worse and cellulitis was spreading. He presented back to the ED where was provided Levofloxacin and admitted for observation Per nursing staff foot appears to have improved from start of IV abx during stay. Patient has no consitutional complaints of infection. He denies any other pedal complaints at this time. Medications & Allergies Home Medications: Home Medication List Allopurinol 300 mg [Zyloprim 300 mg] 1 tab PO DAILY 02/02/23 [History Confirmed 09/12/23] Atorvastatin Calcium [Lipitor 40Mg] 1 tab PO DAILY 02/02/23 [History Confirmed 09/12/23] Insulin Glargine [Lantus Insulin] See Rx Instructions .ROUTE .COMPLEX 02/02/23 [History Confirmed 09/12/23] Loperamide HCl 2 mg [Imodium 2 mg] 1 tab PO DAILY 02/02/23 [History Confirmed 09/12/23] Metformin HCl [Metformin ER Osmotic] 1 tab PO BID 02/02/23 [History Confirmed 09/12/23] Viola-3S/Dha/Epa/Fish Oil [Fish Oil Viola-3 Softgel] 2 cap PO BID 02/02/23 [History Confirmed 09/12/23] Alogliptin Benzoate [Alogliptin] 1 tab PO DAILY 04/28/23 [History Confirmed 09/12/23] Aspirin EC 81 mg [Ecotrin 81 mg] 81 mg PO DAILY 04/28/23 [History Confirmed 09/12/23] Cephalexin Mh 500 mg [Keflex 500 mg] 500 mg PO TID #21 cap 09/08/23 [Rx Confirmed 09/12/23] Allergies/Adverse Reactions: Allergies Allergy/AdvReac Type Severity Reaction Status Date / Time No Known Drug Allergies Allergy Verified 09/12/23 15:32 - Past Medical History Past Medical History: No Neurological History: No Pertinent History ENT History: Cataracts Cardiac History: High Cholesterol, Hypertension Respiratory History: No Pertinent History Endocrine Medical History: Diabetes Type II Musculoskelatal History: No Pertinent History GI Medical History: No Pertinent History History: No Pertinent History Pyscho-Social History: No Pertinent History Male Reproductive Disorders: No Pertinent History - Past Surgical History Past Surgical History: Yes Neuro Surgical History: No Pertinent History Cardiac History: No Pertinent History Respiratory Surgery: No Pertinent History GI Surgical History: No Pertinent History Genitourinary Surgical Hx: No Pertinent History Musculskeletal Surgical Hx: No Pertinent History Male Surgical History: No Pertinent History Other Surgical History: back surgery d/t infection - Social History Smoking Status: Light tobacco smoker Exposure to second hand smoke: Yes Alcohol: Rarely Drug Use: none Physical Exam - General General Appearance: no apparent distress - Neuro Neurologic: Epicritic and protopathic (Largely absent.) - Vascular Peripheral Pulses: Posterior tibialis: 2+, Dorsalis-Pedis: 2+ Capillary Refill Time: < 3 seconds Hair Growth: Symmetrical and Bilateral Varicosities: Negtive Edema: Pitting Edema Degree: 2+ Skin: Supple, not atrophic Skin Temperature: Warm to touch - Muscular Foot Type: (Tailors bunions bilaterally. right with edematous appearence and cellulitis isolated to the lateral forefoot and dorsal midfoot with no indications of streaking, lymphangitis and no lymphadenopathy on palpation. Fluctuant skin quality to the lateral forefoot over 5th mpj. Pain with ROM of 5th MPJ.) - Narrative Narrative Physical Exam: Podiatry Physical Exam Results - Labs Lab/Micro Results: Lab Results-Last 24 Hours 09/12/23 09/12/23 09/12/23 Range/Units 15:50 15:50 15:50 WBC 9.8 (4.0-10.5) x10^3/uL RBC 4.00 L (4.1-5.6) x10^6/uL Hgb 13.1 (12.5-18.0) g/dL Hct 38.3 L (42-50) % MCV 95.8 (78-100) fL MCH 32.8 H (26-32) pg MCHC 34.2 (32-36) g/dL RDW 13.7 (11.5-14.0) % Plt Count 223 (150-450) x10^3/uL MPV 10.4 (7.5-11.0) fL Gran % 62.8 (36.0-66.0) % Immature Gran % (Auto) 0.3 (0.00-0.4) % Nucleat RBC Rel Count 0.0 (0.00-0.1) % Eos # (Auto) 0.22 (0-0.5) x10^3/uL Immature Gran # (Auto) 0.03 (0.00-0.03) x10^3u/L Absolute Lymphs (auto) 2.46 (1.0-4.6) x10^3/uL Absolute Monos (auto) 0.89 (0.0-1.3) x10^3/uL Absolute Nucleated RBC 0.00 (0.00-0.01) x10^3u/L Lymphocytes % 25.1 (24.0-44.0) % Monocytes % 9.1 (0.0-12.0) % Eosinophils % 2.2 (0.00-5.0) % Basophils % 0.5 (0.0-0.4) % Absolute Granulocytes 6.17 (1.4-6.9) x10^3/uL Basophils # 0.05 (0-0.4) x10^3/uL Sodium 141 (137-145) mmol/L Potassium 4.4 (3.5-5.1) mmol/L Chloride 109 H (98-107) mmol/L Carbon Dioxide 19 L (22-30) mmol/L Anion Gap 17.4 H (5-15) MEQ/L BUN 19 (9-20) mg/dL Creatinine 0.90 (0.66-1.25) mg/dL Estimated GFR 93.6 ML/MIN Glucose 164 H (74-106) mg/dL POC Glucometer (74 to 106) mg/dL Hemoglobin A1c (4.5-6.0) % Lactic Acid (0.4-2.0) Uric Acid (3.5-7.2) mg/dL Calcium 9.6 (8.4-10.2) mg/dL Total Bilirubin 0.80 (0.2-1.3) mg/dL AST 28 (17-59) U/L ALT 21 (0-50) U/L Alkaline Phosphatase 95 (38-126) U/L Serum Total Protein 8.0 (6.3-8.2) g/dL Albumin 4.3 (3.5-5.0) g/dL Prealbumin (17.6-36.0) mg/dL Procalcitonin 0.123 H (0.030-0.080) ng/mL Ur Random Creatinine MG/DL U Random Total Protein (0-12) mg/dL 09/12/23 09/12/23 09/12/23 Range/Units 16:00 16:12 18:12 WBC (4.0-10.5) x10^3/uL RBC (4.1-5.6) x10^6/uL Hgb (12.5-18.0) g/dL Hct (42-50) % MCV (78-100) fL MCH (26-32) pg MCHC (32-36) g/dL RDW (11.5-14.0) % Plt Count (150-450) x10^3/uL MPV (7.5-11.0) fL Gran % (36.0-66.0) % Immature Gran % (Auto) (0.00-0.4) % Nucleat RBC Rel Count (0.00-0.1) % Eos # (Auto) (0-0.5) x10^3/uL Immature Gran # (Auto) (0.00-0.03) x10^3u/L Absolute Lymphs (auto) (1.0-4.6) x10^3/uL Absolute Monos (auto) (0.0-1.3) x10^3/uL Absolute Nucleated RBC (0.00-0.01) x10^3u/L Lymphocytes % (24.0-44.0) % Monocytes % (0.0-12.0) % Eosinophils % (0.00-5.0) % Basophils % (0.0-0.4) % Absolute Granulocytes (1.4-6.9) x10^3/uL Basophils # (0-0.4) x10^3/uL Sodium (137-145) mmol/L Potassium (3.5-5.1) mmol/L Chloride (98-107) mmol/L Carbon Dioxide (22-30) mmol/L Anion Gap (5-15) MEQ/L BUN (9-20) mg/dL Creatinine (0.66-1.25) mg/dL Estimated GFR ML/MIN Glucose (74-106) mg/dL POC Glucometer 143 H (74 to 106) mg/dL Hemoglobin A1c (4.5-6.0) % Lactic Acid 1.0 (0.4-2.0) Uric Acid (3.5-7.2) mg/dL Calcium (8.4-10.2) mg/dL Total Bilirubin (0.2-1.3) mg/dL AST (17-59) U/L ALT (0-50) U/L Alkaline Phosphatase (38-126) U/L Serum Total Protein (6.3-8.2) g/dL Albumin (3.5-5.0) g/dL Prealbumin 20.52 (17.6-36.0) mg/dL Procalcitonin (0.030-0.080) ng/mL Ur Random Creatinine MG/DL U Random Total Protein (0-12) mg/dL 09/12/23 09/13/23 09/13/23 Range/Units 21:36 04:45 04:45 WBC 8.8 (4.0-10.5) x10^3/uL RBC 3.63 L (4.1-5.6) x10^6/uL Hgb 11.8 L (12.5-18.0) g/dL Hct 34.3 L (42-50) % MCV 94.5 (78-100) fL MCH 32.5 H (26-32) pg MCHC 34.4 (32-36) g/dL RDW 13.5 (11.5-14.0) % Plt Count 202 (150-450) x10^3/uL MPV 11.0 (7.5-11.0) fL Gran % 62.0 (36.0-66.0) % Immature Gran % (Auto) 0.6 H (0.00-0.4) % Nucleat RBC Rel Count 0.0 (0.00-0.1) % Eos # (Auto) 0.20 (0-0.5) x10^3/uL Immature Gran # (Auto) 0.05 H (0.00-0.03) x10^3u/L Absolute Lymphs (auto) 2.18 (1.0-4.6) x10^3/uL Absolute Monos (auto) 0.86 (0.0-1.3) x10^3/uL Absolute Nucleated RBC 0.00 (0.00-0.01) x10^3u/L Lymphocytes % 24.8 (24.0-44.0) % Monocytes % 9.8 (0.0-12.0) % Eosinophils % 2.3 (0.00-5.0) % Basophils % 0.5 (0.0-0.4) % Absolute Granulocytes 5.46 (1.4-6.9) x10^3/uL Basophils # 0.04 (0-0.4) x10^3/uL Sodium 139 (137-145) mmol/L Potassium 3.9 (3.5-5.1) mmol/L Chloride 108 H (98-107) mmol/L Carbon Dioxide 22 (22-30) mmol/L Anion Gap 12.8 (5-15) MEQ/L BUN 16 (9-20) mg/dL Creatinine 0.76 (0.66-1.25) mg/dL Estimated GFR 98.5 ML/MIN Glucose 99 (74-106) mg/dL POC Glucometer 205 H (74 to 106) mg/dL Hemoglobin A1c (4.5-6.0) % Lactic Acid (0.4-2.0) Uric Acid (3.5-7.2) mg/dL Calcium 9.0 (8.4-10.2) mg/dL Total Bilirubin 0.80 (0.2-1.3) mg/dL AST 24 (17-59) U/L ALT 17 (0-50) U/L Alkaline Phosphatase 78 (38-126) U/L Serum Total Protein 6.8 (6.3-8.2) g/dL Albumin 3.5 (3.5-5.0) g/dL Prealbumin (17.6-36.0) mg/dL Procalcitonin (0.030-0.080) ng/mL Ur Random Creatinine MG/DL U Random Total Protein (0-12) mg/dL 09/13/23 09/13/23 09/13/23 Range/Units 04:45 05:00 08:19 WBC (4.0-10.5) x10^3/uL RBC (4.1-5.6) x10^6/uL Hgb (12.5-18.0) g/dL Hct (42-50) % MCV (78-100) fL MCH (26-32) pg MCHC (32-36) g/dL RDW (11.5-14.0) % Plt Count (150-450) x10^3/uL MPV (7.5-11.0) fL Gran % (36.0-66.0) % Immature Gran % (Auto) (0.00-0.4) % Nucleat RBC Rel Count (0.00-0.1) % Eos # (Auto) (0-0.5) x10^3/uL Immature Gran # (Auto) (0.00-0.03) x10^3u/L Absolute Lymphs (auto) (1.0-4.6) x10^3/uL Absolute Monos (auto) (0.0-1.3) x10^3/uL Absolute Nucleated RBC (0.00-0.01) x10^3u/L Lymphocytes % (24.0-44.0) % Monocytes % (0.0-12.0) % Eosinophils % (0.00-5.0) % Basophils % (0.0-0.4) % Absolute Granulocytes (1.4-6.9) x10^3/uL Basophils # (0-0.4) x10^3/uL Sodium (137-145) mmol/L Potassium (3.5-5.1) mmol/L Chloride (98-107) mmol/L Carbon Dioxide (22-30) mmol/L Anion Gap (5-15) MEQ/L BUN (9-20) mg/dL Creatinine (0.66-1.25) mg/dL Estimated GFR ML/MIN Glucose (74-106) mg/dL POC Glucometer 121 H (74 to 106) mg/dL Hemoglobin A1c 7.18 H (4.5-6.0) % Lactic Acid (0.4-2.0) Uric Acid 5.0 (3.5-7.2) mg/dL Calcium (8.4-10.2) mg/dL Total Bilirubin (0.2-1.3) mg/dL AST (17-59) U/L ALT (0-50) U/L Alkaline Phosphatase (38-126) U/L Serum Total Protein (6.3-8.2) g/dL Albumin (3.5-5.0) g/dL Prealbumin (17.6-36.0) mg/dL Procalcitonin (0.030-0.080) ng/mL Ur Random Creatinine MG/DL U Random Total Protein (0-12) mg/dL 09/13/23 09/13/23 Range/Units 08:54 11:05 WBC (4.0-10.5) x10^3/uL RBC (4.1-5.6) x10^6/uL Hgb (12.5-18.0) g/dL Hct (42-50) % MCV (78-100) fL MCH (26-32) pg MCHC (32-36) g/dL RDW (11.5-14.0) % Plt Count (150-450) x10^3/uL MPV (7.5-11.0) fL Gran % (36.0-66.0) % Immature Gran % (Auto) (0.00-0.4) % Nucleat RBC Rel Count (0.00-0.1) % Eos # (Auto) (0-0.5) x10^3/uL Immature Gran # (Auto) (0.00-0.03) x10^3u/L Absolute Lymphs (auto) (1.0-4.6) x10^3/uL Absolute Monos (auto) (0.0-1.3) x10^3/uL Absolute Nucleated RBC (0.00-0.01) x10^3u/L Lymphocytes % (24.0-44.0) % Monocytes % (0.0-12.0) % Eosinophils % (0.00-5.0) % Basophils % (0.0-0.4) % Absolute Granulocytes (1.4-6.9) x10^3/uL Basophils # (0-0.4) x10^3/uL Sodium (137-145) mmol/L Potassium (3.5-5.1) mmol/L Chloride (98-107) mmol/L Carbon Dioxide (22-30) mmol/L Anion Gap (5-15) MEQ/L BUN (9-20) mg/dL Creatinine (0.66-1.25) mg/dL Estimated GFR ML/MIN Glucose (74-106) mg/dL POC Glucometer 226 H (74 to 106) mg/dL Hemoglobin A1c (4.5-6.0) % Lactic Acid (0.4-2.0) Uric Acid (3.5-7.2) mg/dL Calcium (8.4-10.2) mg/dL Total Bilirubin (0.2-1.3) mg/dL AST (17-59) U/L ALT (0-50) U/L Alkaline Phosphatase (38-126) U/L Serum Total Protein (6.3-8.2) g/dL Albumin (3.5-5.0) g/dL Prealbumin (17.6-36.0) mg/dL Procalcitonin (0.030-0.080) ng/mL Ur Random Creatinine 118.4 MG/DL U Random Total Protein 11 (0-12) mg/dL Accuchecks Date 09/13/23 Date 09/12/23 Time 12:15 - Radiology Impressions Radiology Exams & Impressions: Radiology Procedures Category Date Time Status FOOT (2 VIEWS) Urgent Exams 09/13/23 09:43 Completed Assessment/Plan (1) Puncture wound of lesser toe of right foot w/o FB with damage to nail Current Visit: Yes Status: Acute Assessment & Plan: Initial patient examination and evaluation radiographs reviewed demonstrating no obvious soft tissue or osseous pathology query possible metallic object at proximal phalanx of 5th digit. MRI ordered- unable to obtain Discussion regarding options with patient: patient amenable to bedside Incision and Drainage simple. Aseptic technique was preformed during procedure. Iodine paint to the right lateral forefoot. An injection of 10 ccs of a 1:1 mixture of 1% lidocaine plain and .5% bupivicaine plain was injected in a mini-grewal block type fashion to the 5th metatarsal. following this aspiration of the joint was attempted. when attempting laterally from the joint a small amount of purulence was able to be drained. Cultures were taken at that time. The plantar puncture site was debrided using a loop curette. The wound plantarly was able to connect to the lateral incision site where tract and infection appear to have spread contiguously. copious amounts of sterile saline were utilized in a operative flush to right wounds. A dressing consisting of iodine adaptic 4x4 kerlix and coban was applied with moderate compression to the right foot IV abx- medicine managing at this time. plan to follow cultures and narrow spectrum as patient progresses. Partial weight bearing to the right heel. will reassess tomorrow. following with you I appreciate the consult. Code(s): S91.234A - PNCTR W/O FB OF RIGHT LESSER TOE(S) W DAMAGE TO NAIL, INIT (2) Cellulitis of foot Current Visit: Yes Status: Acute Code(s): L03.119 - CELLULITIS OF UNSPECIFIED PART OF LIMB (3) Type 2 diabetes mellitus with diabetic chronic kidney disease Current Visit: Yes Status: Acute Qualifiers: Diabetes mellitus terminal supervisor insulin use: with half-way use Chronic kidney disease stage: stage 2 (mild) Qualified Code(s): E11.22 - Type 2 diabetes mellitus with diabetic chronic kidney disease; N18.2 - Chronic kidney disease, stage 2 (mild); Z79.4 - buttermaker helper (current) use of insulin Code(s): E11.22 - TYPE 2 DIABETES MELLITUS W DIABETIC CHRONIC KIDNEY DISEASE (4) Right foot injury Current Visit: No Status: Acute Code(s): S99.921A - UNSPECIFIED INJURY OF RIGHT FOOT, INITIAL ENCOUNTER
[2023-09-13] MEDS: Sodium Chloride 0.9% 1000 ML 1,000 ML IV SCH (16:18)
--- NOTE | 2023-09-13 18:40 | PCM.NOTE ---
Date and Time: 09/13/231834 Subjective Assessment: Patient admitted with cellulitis of right foot. He stepped on a nail. He was seen in ER 3 days ago and was sent home on oral antibiotics. He was not compliant with antibiotics. He reports redness and swelling improved with IV antibiotics overnight. He denies chest pain or dyspnea. No fever. No abdominal p ain. No nausea or vomiting. - Review of Systems Constitutional: No Symptoms, No Fever, No Chills Eyes: No Symptoms Ears, Nose, & Throat: No Symptoms Respiratory: No Symptoms Cardiac: No Symptoms Abdominal/Gastrointestinal: No Symptoms Genitourinary Symptoms: No Symptoms Musculoskeletal: No Symptoms Skin: Cellulitis Neurological: No Symptoms Psychological: No Symptoms, Hallucinations Hematologic/Lymphatic: No Symptoms Immunological/Allergic: No Symptoms All Other Systems: Reviewed and Negative Objective Exam General Appearance: no apparent distress Neurologic Exam: alert, oriented x 3, cooperative Skin Exam: rash Wound Assessment: Skin/Wound Assessment Wound/Incision Assessment Start: 09/12/23 18:26 Text: Status: Active Freq: Q6H Protocol: Document 09/13/23 14:00 ROMEL (Rec: 09/13/23 15:36 [id number]) Wound/Incision Assessment Right Foot Wound Assessment Shift Assessment Wound Type cellulitis Wound Stage Non Pressure Wound Drainage Amount None Drainage Odor None/Absent General Appearance Reddened Surrounding Tissue [place],Bright Red,Shiny, Edematous Comment redness to dorsal/lateral R foot, skin is intact at this time, moderate non pitting edema present, pt denies pain Wound Photo Photo Taken No Eye Exam: PERRL, EOMI, eyes nml inspection Ears, Nose, Throat Exam: normal ENT inspection Neck Exam: normal inspection, non-tender, supple Lymphatic Exam: No adenopathy Respiratory Exam: normal breath sounds, chest tenderness Cardiovascular Exam: regular rate/rhythm, normal heart sounds, normal peripheral pulses Gastrointestinal/Abdomen Exam: soft, normal bowel sounds, No tenderness, No mass Extremity Exam: normal inspection Back Exam: normal inspection Male Genitalia Exam: deferred Rectal Exam: deferred OBJECTIVE DATA Vital Signs: Vital Signs - 24 hr Temp Pulse Resp BP Pulse Ox 09/13/23 16:00 97.6 F 96 H 17 126/67 96 09/13/23 12:00 98.2 F 69 16 125/58 96 09/13/23 07:01 97.2 F 75 18 145/65 95 09/13/23 03:50 96.9 F 69 16 144/69 96 09/12/23 23:32 97.7 F 68 16 104/54 95 Pain Assessment - Last Documented Pain Intensity 0 Pain Scale Used 0-10 Pain Scale Intake and Output: Intake & Output 09/11/23 09/12/23 09/13/23 09/14/23 11:59 11:59 11:59 11:59 Intake Total 360 720 Balance 360 720 Weight 80.5 kg Lab Results: Lab Results-Last 24 Hours 09/12/23 09/12/23 09/13/23 Range/Units 16:12 21:36 04:45 WBC 8.8 (4.0-10.5) x10^3/uL RBC 3.63 L (4.1-5.6) x10^6/uL Hgb 11.8 L (12.5-18.0) g/dL Hct 34.3 L (42-50) % MCV 94.5 (78-100) fL MCH 32.5 H (26-32) pg MCHC 34.4 (32-36) g/dL RDW 13.5 (11.5-14.0) % Plt Count 202 (150-450) x10^3/uL MPV 11.0 (7.5-11.0) fL Gran % 62.0 (36.0-66.0) % Immature Gran % (Auto) 0.6 H (0.00-0.4) % Nucleat RBC Rel Count 0.0 (0.00-0.1) % Eos # (Auto) 0.20 (0-0.5) x10^3/uL Immature Gran # (Auto) 0.05 H (0.00-0.03) x10^3u/L Absolute Lymphs (auto) 2.18 (1.0-4.6) x10^3/uL Absolute Monos (auto) 0.86 (0.0-1.3) x10^3/uL Absolute Nucleated RBC 0.00 (0.00-0.01) x10^3u/L Lymphocytes % 24.8 (24.0-44.0) % Monocytes % 9.8 (0.0-12.0) % Eosinophils % 2.3 (0.00-5.0) % Basophils % 0.5 (0.0-0.4) % Absolute Granulocytes 5.46 (1.4-6.9) x10^3/uL Basophils # 0.04 (0-0.4) x10^3/uL Sodium (137-145) mmol/L Potassium (3.5-5.1) mmol/L Chloride (98-107) mmol/L Carbon Dioxide (22-30) mmol/L Anion Gap (5-15) MEQ/L BUN (9-20) mg/dL Creatinine (0.66-1.25) mg/dL Estimated GFR ML/MIN Glucose (74-106) mg/dL POC Glucometer 205 H (74 to 106) mg/dL Hemoglobin A1c (4.5-6.0) % Uric Acid (3.5-7.2) mg/dL Calcium (8.4-10.2) mg/dL Total Bilirubin (0.2-1.3) mg/dL AST (17-59) U/L ALT (0-50) U/L Alkaline Phosphatase (38-126) U/L Serum Total Protein (6.3-8.2) g/dL Albumin (3.5-5.0) g/dL Prealbumin 20.52 (17.6-36.0) mg/dL Ur Random Creatinine MG/DL U Random Total Protein (0-12) mg/dL 09/13/23 09/13/23 09/13/23 Range/Units 04:45 04:45 05:00 WBC (4.0-10.5) x10^3/uL RBC (4.1-5.6) x10^6/uL Hgb (12.5-18.0) g/dL Hct (42-50) % MCV (78-100) fL MCH (26-32) pg MCHC (32-36) g/dL RDW (11.5-14.0) % Plt Count (150-450) x10^3/uL MPV (7.5-11.0) fL Gran % (36.0-66.0) % Immature Gran % (Auto) (0.00-0.4) % Nucleat RBC Rel Count (0.00-0.1) % Eos # (Auto) (0-0.5) x10^3/uL Immature Gran # (Auto) (0.00-0.03) x10^3u/L Absolute Lymphs (auto) (1.0-4.6) x10^3/uL Absolute Monos (auto) (0.0-1.3) x10^3/uL Absolute Nucleated RBC (0.00-0.01) x10^3u/L Lymphocytes % (24.0-44.0) % Monocytes % (0.0-12.0) % Eosinophils % (0.00-5.0) % Basophils % (0.0-0.4) % Absolute Granulocytes (1.4-6.9) x10^3/uL Basophils # (0-0.4) x10^3/uL Sodium 139 (137-145) mmol/L Potassium 3.9 (3.5-5.1) mmol/L Chloride 108 H (98-107) mmol/L Carbon Dioxide 22 (22-30) mmol/L Anion Gap 12.8 (5-15) MEQ/L BUN 16 (9-20) mg/dL Creatinine 0.76 (0.66-1.25) mg/dL Estimated GFR 98.5 ML/MIN Glucose 99 (74-106) mg/dL POC Glucometer (74 to 106) mg/dL Hemoglobin A1c 7.18 H (4.5-6.0) % Uric Acid 5.0 (3.5-7.2) mg/dL Calcium 9.0 (8.4-10.2) mg/dL Total Bilirubin 0.80 (0.2-1.3) mg/dL AST 24 (17-59) U/L ALT 17 (0-50) U/L Alkaline Phosphatase 78 (38-126) U/L Serum Total Protein 6.8 (6.3-8.2) g/dL Albumin 3.5 (3.5-5.0) g/dL Prealbumin (17.6-36.0) mg/dL Ur Random Creatinine MG/DL U Random Total Protein (0-12) mg/dL 09/13/23 09/13/23 09/13/23 Range/Units 08:19 08:54 11:05 WBC (4.0-10.5) x10^3/uL RBC (4.1-5.6) x10^6/uL Hgb (12.5-18.0) g/dL Hct (42-50) % MCV (78-100) fL MCH (26-32) pg MCHC (32-36) g/dL RDW (11.5-14.0) % Plt Count (150-450) x10^3/uL MPV (7.5-11.0) fL Gran % (36.0-66.0) % Immature Gran % (Auto) (0.00-0.4) % Nucleat RBC Rel Count (0.00-0.1) % Eos # (Auto) (0-0.5) x10^3/uL Immature Gran # (Auto) (0.00-0.03) x10^3u/L Absolute Lymphs (auto) (1.0-4.6) x10^3/uL Absolute Monos (auto) (0.0-1.3) x10^3/uL Absolute Nucleated RBC (0.00-0.01) x10^3u/L Lymphocytes % (24.0-44.0) % Monocytes % (0.0-12.0) % Eosinophils % (0.00-5.0) % Basophils % (0.0-0.4) % Absolute Granulocytes (1.4-6.9) x10^3/uL Basophils # (0-0.4) x10^3/uL Sodium (137-145) mmol/L Potassium (3.5-5.1) mmol/L Chloride (98-107) mmol/L Carbon Dioxide (22-30) mmol/L Anion Gap (5-15) MEQ/L BUN (9-20) mg/dL Creatinine (0.66-1.25) mg/dL Estimated GFR ML/MIN Glucose (74-106) mg/dL POC Glucometer 121 H 226 H (74 to 106) mg/dL Hemoglobin A1c (4.5-6.0) % Uric Acid (3.5-7.2) mg/dL Calcium (8.4-10.2) mg/dL Total Bilirubin (0.2-1.3) mg/dL AST (17-59) U/L ALT (0-50) U/L Alkaline Phosphatase (38-126) U/L Serum Total Protein (6.3-8.2) g/dL Albumin (3.5-5.0) g/dL Prealbumin (17.6-36.0) mg/dL Ur Random Creatinine 118.4 MG/DL U Random Total Protein 11 (0-12) mg/dL 09/13/23 Range/Units 16:02 WBC (4.0-10.5) x10^3/uL RBC (4.1-5.6) x10^6/uL Hgb (12.5-18.0) g/dL Hct (42-50) % MCV (78-100) fL MCH (26-32) pg MCHC (32-36) g/dL RDW (11.5-14.0) % Plt Count (150-450) x10^3/uL MPV (7.5-11.0) fL Gran % (36.0-66.0) % Immature Gran % (Auto) (0.00-0.4) % Nucleat RBC Rel Count (0.00-0.1) % Eos # (Auto) (0-0.5) x10^3/uL Immature Gran # (Auto) (0.00-0.03) x10^3u/L Absolute Lymphs (auto) (1.0-4.6) x10^3/uL Absolute Monos (auto) (0.0-1.3) x10^3/uL Absolute Nucleated RBC (0.00-0.01) x10^3u/L Lymphocytes % (24.0-44.0) % Monocytes % (0.0-12.0) % Eosinophils % (0.00-5.0) % Basophils % (0.0-0.4) % Absolute Granulocytes (1.4-6.9) x10^3/uL Basophils # (0-0.4) x10^3/uL Sodium (137-145) mmol/L Potassium (3.5-5.1) mmol/L Chloride (98-107) mmol/L Carbon Dioxide (22-30) mmol/L Anion Gap (5-15) MEQ/L BUN (9-20) mg/dL Creatinine (0.66-1.25) mg/dL Estimated GFR ML/MIN Glucose (74-106) mg/dL POC Glucometer 99 (74 to 106) mg/dL Hemoglobin A1c (4.5-6.0) % Uric Acid (3.5-7.2) mg/dL Calcium (8.4-10.2) mg/dL Total Bilirubin (0.2-1.3) mg/dL AST (17-59) U/L ALT (0-50) U/L Alkaline Phosphatase (38-126) U/L Serum Total Protein (6.3-8.2) g/dL Albumin (3.5-5.0) g/dL Prealbumin (17.6-36.0) mg/dL Ur Random Creatinine MG/DL U Random Total Protein (0-12) mg/dL Radiology Exams: Radiology Procedures Category Date Time Status FOOT (2 VIEWS) Urgent Exams 09/13/23 09:43 Completed Assessment/Plan (1) Cellulitis of foot Current Visit: Yes Status: Acute Assessment & Plan: Cellulitis right foot Changed IV antibiotics from Levaquin to Unasyn Patient seen by Podiatry Foot was aspirated and sent for culture We ordered MRI but it can't be done until next week due to staffing issues. Pain controlled. Code(s): L03.119 - CELLULITIS OF UNSPECIFIED PART OF LIMB (2) Type 2 diabetes mellitus with diabetic chronic kidney disease Current Visit: Yes Status: Chronic Qualifiers: Diabetes mellitus terminal computer operator insulin use: with terminal computer operator use Chronic kidney disease stage: stage 2 (mild) Qualified Code(s): E11.22 - Type 2 diabetes mellitus with diabetic chronic kidney disease; N18.2 - Chronic kidney disease, stage 2 (mild); Z79.4 - terminal clerk (current) use of insulin Assessment & Plan: Monitor BS. SS insulin Renal function is stable Code(s): E11.22 - TYPE 2 DIABETES MELLITUS W DIABETIC CHRONIC KIDNEY DISEASE Telemedicine Encounter - Telemedicine Encounter Telemedicine Encounter: The entirety of this encounter was performed via Telemedicine after consent obtained Labs and imaging reviewed. Discussed with Podiatry and admitting physician Juan Shah [facility]
[2023-09-13] MEDS: Lantus Insulin SQ SCH (21:44)
[2023-09-14 05:18] LABS: ANION GAP 13.7 MEQ/L (5-15); Calcium 8.9 mg/dL (8.4-10.2); Creatinine 1 0.76 mg/dL (0.66-1.25); EST GLOMERULAR FILTRATION RATE 98.5 ML/MIN; Potassium 3.6 mmol/L (3.5-5.1)
[2023-09-14 05:26] LABS: Hematocrit 34.2 % (42-50); Hemoglobin 11.7 g/dL (12.5-18.0); Mean Cell Volume 94.2 fL (78-100); Mean Corpuscular Hemoglobin 32.2 pg (26-32); Mean Corpuscular Hgb Concent. 34.2 g/dL (32-36); Mean Platelet Volume 10.5 fL (7.5-11.0); Platelet Count 204 x10^3/uL (150-450); Red Blood Count 3.63 x10^6/uL (4.1-5.6); Red Cell Distribution Width 13.2 % (11.5-14.0); White Blood Count 8.1 x10^3/uL (4.0-10.5)
[2023-09-14] MEDS: Unasyn 3 GM Vial*** 3 G in Sodium Chloride 100ML MINI-BAG PLUS 100 ML IV SCH ×2 (05:35→13:21)
[2023-09-14 07:40] VITALS: RESP 16
[2023-09-14] MEDS: ZYLOPRIM 300 MG PO SCH (07:47)
[2023-09-14] MEDS: Glucophage XR 500 MG PO SCH (07:48)
[2023-09-14] MEDS: TYLENOL 325 MG PO PRN (09:16)
[2023-09-14] MEDS: Sodium Chloride 0.9% 1000 ML 1,000 ML IV SCH (10:34)
[2023-09-14 12:16] VITALS: BP 133/83; PULSE 66; TEMP 98.7; O2SAT 94
--- NOTE | 2023-09-14 15:59 | PCM.DS ---
Discharge Summary Date of Admission: 09/12/23 18:06 Date of Discharge: 09/14/23. Admitting Physician: LORENA BEE MD Consults: Consults on Case 09/13/23 09:21 Consult Podiatry ROUTINE Primary Care Provider: [facility] Allergies Allergies No Known Drug Allergies Allergy (Verified 09/12/23 15:32) Hospital Summary - Hospital Course Hospital Course: This patient was admitted with cellulitis of right foot. He has diabetes with diabetic neuropathy. He stepped on a nail a few days ago and was seen in ER and started on antibiotics. However, he did not get the prescription filled and came in with pain and swelling in right foot. He was started on IV antibiotics. He was seen by Podiatry and the foot was aspirated and culture was sent to lab but is not back yet. His swelling and redness improved. Podiatry cleared patient for discharge on oral Levaquin and Percocet and patient will follow up with Podiatry in the office next week. Patient is improved and will be dismissed on 09/14/23. - Vitals & Intake/Output Vital Signs: Vital Signs Temperature 98.7 F 09/14/23 12:00 Pulse Rate 66 09/14/23 12:00 Respiratory Rate 16 09/14/23 12:00 Blood Pressure 133/83 09/14/23 12:00 O2 Sat by Pulse Oximetry 94 L 09/14/23 12:00 Intake & Output: Intake & Output 09/12/23 09/13/23 09/14/23 09/15/23 11:59 11:59 11:59 11:59 Intake Total 360 1260 240 Balance 360 1260 240 Weight 80.5 kg 80.5 kg - Lab Result Diagrams: 09/14/23 04:30 09/14/23 04:30 Lab Results-Last 24 Hrs: Lab Results-Last 24 Hours 09/13/23 09/13/23 09/14/23 Range/Units 16:02 21:15 04:30 WBC 8.1 (4.0-10.5) x10^3/uL RBC 3.63 L (4.1-5.6) x10^6/uL Hgb 11.7 L (12.5-18.0) g/dL Hct 34.2 L (42-50) % MCV 94.2 (78-100) fL MCH 32.2 H (26-32) pg MCHC 34.2 (32-36) g/dL RDW 13.2 (11.5-14.0) % Plt Count 204 (150-450) x10^3/uL MPV 10.5 (7.5-11.0) fL Sodium (137-145) mmol/L Potassium (3.5-5.1) mmol/L Chloride (98-107) mmol/L Carbon Dioxide (22-30) mmol/L Anion Gap (5-15) MEQ/L BUN (9-20) mg/dL Creatinine (0.66-1.25) mg/dL Estimated GFR ML/MIN Glucose (74-106) mg/dL POC Glucometer 99 107 H (74 to 106) mg/dL Calcium (8.4-10.2) mg/dL 09/14/23 09/14/23 09/14/23 Range/Units 04:30 07:10 11:41 WBC (4.0-10.5) x10^3/uL RBC (4.1-5.6) x10^6/uL Hgb (12.5-18.0) g/dL Hct (42-50) % MCV (78-100) fL MCH (26-32) pg MCHC (32-36) g/dL RDW (11.5-14.0) % Plt Count (150-450) x10^3/uL MPV (7.5-11.0) fL Sodium 138 (137-145) mmol/L Potassium 3.6 (3.5-5.1) mmol/L Chloride 107 (98-107) mmol/L Carbon Dioxide 21 L (22-30) mmol/L Anion Gap 13.7 (5-15) MEQ/L BUN 15 (9-20) mg/dL Creatinine 0.76 (0.66-1.25) mg/dL Estimated GFR 98.5 ML/MIN Glucose 109 H (74-106) mg/dL POC Glucometer 123 H 182 H (74 to 106) mg/dL Calcium 8.9 (8.4-10.2) mg/dL Micro Results-Entire Visit: Microbiology 09/12/23 15:50 Blood Culture - Preliminary Blood 09/12/23 16:08 Blood Culture - Preliminary Blood 09/13/23 14:09 Wound Culture - Preliminary Toe - Right 5th Toe NO GROWTH TO DATE Accuchecks Date 09/14/23 Date 09/13/23 Time 16:40 - Radiology Exams Ordered Rad Exams-Entire Visit: Radiology Procedures Category Date Time Status FOOT (2 VIEWS) Urgent Exams 09/13/23 09:43 Completed Discharge Exam General Appearance: no apparent distress Neurologic Exam: alert, oriented x 3, cooperative Eye Exam: PERRL, EOMI Ears, Nose, Throat Exam: normal ENT inspection Neck Exam: normal inspection Respiratory Exam: normal breath sounds Cardiovascular Exam: regular rate/rhythm, normal heart sounds, normal peripheral pulses Gastrointestinal/Abdomen Exam: soft, normal bowel sounds, No tenderness, No mass Male Genitalia Exam: deferred Rectal Exam: deferred Back Exam: normal inspection Extremity Exam: other (Swelling right foot) Skin Exam: normal color, warm, dry Wound Assessment: Skin/Wound Assessment Wound/Incision Assessment Start: 09/12/23 18:26 Text: Status: Active Freq: Q6H Protocol: Document 09/14/23 14:00 EK (Rec: 09/14/23 14:59 EK [id number]) Wound/Incision Assessment Right Foot Wound Assessment Shift Assessment Wound Type cellulitis Wound Stage Non Pressure Wound Dressing Status Dry & Intact Drainage Amount None Drainage Odor None/Absent Primary Dressing per Dr. Gallego Comment DRESSING CHANGED TODAY PER DR. GALLEGO - C/D/I AT THIS TIME. ELEVATED ON PILLOWS. Wound Photo Photo Taken No Lymphatic Exam: No adenopathy Final Diagnosis/Problem List - Final Discharge Diagnosis/Problem (1) Cellulitis of foot Current Visit: Yes Status: Acute Priority: High Assessment & Plan: Cellulitis improved Cleared by podiatry for discharge on oral Levaquin Code(s): L03.119 - CELLULITIS OF UNSPECIFIED PART OF LIMB (2) Type 2 diabetes mellitus with diabetic chronic kidney disease Current Visit: Yes Status: Chronic Assessment & Plan: Continue home meds. Code(s): E11.22 - TYPE 2 DIABETES MELLITUS W DIABETIC CHRONIC KIDNEY DISEASE Telemedicine Encounter - Telemedicine Encounter Telemedicine Encounter: The entirety of this encounter was performed via Telemedicine" - Discharge Disposition: Home, Self-Care Condition: Stable Prescriptions: New Insulin Glargine [Lantus Insulin] 50 unit SQ HS unit Acetaminophen 325 mg [Tylenol 325 mg] 650 mg PO Q4H PRN PRN tablet PRN Reason: Pain, Fever, Headache Continue [place]-3S/Dha/Epa/Fish Oil [Fish Oil [place]-3 Softgel] 2 cap PO BID Metformin HCl [Metformin ER Osmotic] 1 tab PO BID Atorvastatin Calcium [Lipitor 40Mg] 1 tab PO DAILY Allopurinol 300 mg [Zyloprim 300 mg] 1 tab PO DAILY Insulin Glargine [Lantus Insulin] See Rx Instructions .ROUTE .COMPLEX Aspirin EC 81 mg [Ecotrin 81 mg] 81 mg PO DAILY Alogliptin Benzoate [Alogliptin] 1 tab PO DAILY Discontinued Loperamide HCl 2 mg [Imodium 2 mg] 1 tab PO DAILY Cephalexin Mh 500 mg [Keflex 500 mg] 500 mg PO TID #21 cap Instructions: Cellulitis (Skin Infection), Adult (DC), Foot Care for Diabetics Additional Instructions: PRESCRIPTIONS FOR ANTIBIOTICS AND PAIN MEDICATIONS WILL BE SENT IN TO [facility] PER DR. GALLEGO. PLEASE TAKE PRESCRIBED. LEAVE DRESSING CLEAN DRY AND INTACT. GO TO [facility] [place] ON TUESDAY FOR DRESSING CHANGE. THEY WILL CALL YOU TO ARRANGE A TIME. BRING DRESSING SUPPLIES WITH YOU AT THAT TIME. DRESSING ORDERS PER DR. GALLEGO FOLLOWS: DRESSING TO RIGHT FOOT TO BE CHANGED EVERY OTHER DAY STARTING 09/16/23 DRESSING TO BE IODINE, ADAPTIC, 4X4, SECURED WITH KERLEX AND COBAN. Follow up with: JULIÁN CHRISTIE DPM [ACTIVE STAFF] - 09/20/23 9:30 am [facility] [Primary Care Provider] - Forms: Discharge Instructions
== END 2023-09-14 16:50 | disposition home or self-care (01) ==
LOC: ED 15:18 → MED SURG 18:06
PROVIDERS: ADMIT Internal Medicine; ATTEND Internal Medicine
DX: L03.115 Cellulitis of right lower limb (principal); S91.234 Puncture wound without foreign body of right lesser toe(s) with damage to nail; I12.9 Hypertensive chronic kidney disease with stage 1 through stage 4 chronic kidney disease, or unspecified chronic kidney disease; E11.22 Type 2 diabetes mellitus with diabetic chronic kidney disease; N18.2 Chronic kidney disease, stage 2 (mild); E78.5 Hyperlipidemia, unspecified; M10.9 Gout, unspecified; Z79.4 Long term (current) use of insulin; Z79.899 Other long term (current) drug therapy; Z20.828 Contact with and (suspected) exposure to other viral communicable diseases
CPT/HCPCS: 10060; 36000; 36415; 73620; 80048; 80053; 82570; 82947; 83036; 83605; 84134; 84145; 84156; 84550; 85025; 85027; 87040; 87070; 94760; 99284; G0378; Q3014; J0295; J1815; J1956; A9270-GY

== ENCOUNTER 2023-10-04 09:30 | Day surgery (SDC) | payer OTHER ==
[2023-10-04] MEDS ORDERED: Marcaine Mpf 0.5% Vial 30 Ml ONE (10:42)
[2023-10-04] MEDS ORDERED: Xylocaine 1% Vial 30 ML PF IJ ONE (10:42)
[2023-10-04] MEDS ORDERED: Lactated Ringers 1,000 ML IV SCH (11:00)
[2023-10-04] MEDS ORDERED: CEFAZOLIN 2 GM-D5W BAG** 2 GM/50 ML ML IV SCH (11:00)
[2023-10-04] MEDS ORDERED: CEFAZOLIN 2 GM-D5W BAG** 2 GM/50 ML ML IV ONE (11:12)
[2023-10-04] MEDS ORDERED: Lactated Ringers 1,000 ML IV ONE (11:12)
--- NOTE | 2023-10-04 11:19 | XRAY ---
Indication: Ultrasound guidance for PICC line placement. Initial sonographic imaging of the right upper extremity was performed for localization of patent veins. A patent basilic vein identified above the elbow. Ultrasound guidance was then used for PICC line insertion . Full PICC line insertion is reported separately.
--- NOTE | 2023-10-04 11:21 | XRAY ---
Indication: Long-term IV access and therapy for right foot infection. Informed consent obtained. Patient was placed on the fluoroscopic table in a supine position. Initial sonographic imaging of the right upper extremity was performed for localization of patent veins. The right upper extremity was then prepped and draped in sterile fashion. Tourniquet applied. 1% lidocaine plain used for local anesthesia. Using ultrasound guidance and a micropuncture needle, a basilic vein above the elbow was successfully percutaneously cannulized. A floppy tip 0.018 guidewire inserted. Tourniquet released. Needle was exchanged for a 5 Maori dilator peel-away sheath catheter. Ultimately a 5 Maori double-lumen PICC line was inserted over a longer 0.018 guidewire with the tip positioned in the distal SVC using fluoroscopic guidance. Guidewire removed. Both ports flushed with heparinized saline. Catheter was secured. Postoperative instructions and orders given. Patient discharged in good condition. Impression: Technically successful right upper extremity PICC line placement using ultrasound and fluoroscopic guidance. No immediate complications. Approximately 2 cc blood loss. Approximately 0.5 minute of fluoroscopy used. Catheter length is 45 cm.
[2023-10-04 11:41] LABS: Hematocrit 38.5 % (42-50); Hemoglobin 12.9 g/dL (12.5-18.0); Mean Cell Volume 96.3 fL (78-100); Mean Corpuscular Hemoglobin 32.3 pg (26-32); Mean Corpuscular Hgb Concent. 33.5 g/dL (32-36); Mean Platelet Volume 10.3 fL (7.5-11.0); Platelet Count 170 x10^3/uL (150-450); Red Cell Distribution Width 13.9 % (11.5-14.0); White Blood Count 8.7 x10^3/uL (4.0-10.5)
[2023-10-04 11:56] LABS: BILIRUBIN,TOTAL 0.7 mg/dL (0.2-1.3); Calcium 8.9 mg/dL (8.4-10.2); Creatinine 1 0.76 mg/dL (0.66-1.25); EST GLOMERULAR FILTRATION RATE 98.5 ML/MIN; Potassium 4.2 mmol/L (3.5-5.1); Total Protein 7.2 g/dL (6.3-8.2)
[2023-10-04] MEDS ORDERED: Sodium Chloride 0.9% 10 ML FLUSH Syringe PICC PRN (11:57)
[2023-10-04] MEDS ORDERED: VANCOCIN INJECTION IV ONE (13:02)
--- NOTE | 2023-10-04 13:30 | XRAY ---
Indication: Bone biopsy right 5th metatarsal and 5th toe. Intraoperative fluoroscopy provided for 11 seconds. 6 digital spot images similar for interpretation demonstrates metallic localizer tip adjacent head 5th metatarsal and also proximal 5th phalanx. Correlate with intraoperative findings/report.
[2023-10-04 13:38] VITALS: O2SAT 96
[2023-10-04 14:14] VITALS: BP 130/68; PULSE 68; RESP 18; TEMP 97.8
--- NOTE | 2023-10-04 15:28 | XRAY ---
11 seconds of fluoroscopy was used in surgery for a bone biopsy right 5th metatarsal and 5th toe.
--- NOTE | 2023-10-05 11:00 | OP ---
SURGERY DATE/TIME: 10/04/2023 1236 PREOPERATIVE DIAGNOSES: 1) Osteomyelitis, right foot fifth metatarsal and proximal phalanx. 2) Puncture wound right foot through shoe. 3) Diabetes mellitus. 4) Peripheral neuropathy right foot. POSTOPERATIVE DIAGNOSES: 1) Osteomyelitis, right foot fifth metatarsal and proximal phalanx. 2) Puncture wound right foot through shoe. 3) Diabetes mellitus. 4) Peripheral neuropathy right foot. PROCEDURE: Incision and drainage right foot with bone debridement. SURGEON: Tej Simmons DPM. ENVIRONMENTAL PROTECTION OFFICER: None. ANESTHESIA: Local. HEMOSTASIS: Pressure dressing. ESTIMATED BLOOD LOSS: Approximately 5 cc. MATERIALS: 3-0 Nylon. INJECTABLES: 20 cc of 1:1 mixture of 1% lidocaine plain and 0.5% bupivacaine plain injected in a mini-Walker block-type fashion to the right lower extremity. INDICATION FOR SURGERY: Jose Luis is a very pleasant 67-year-old male who approximately four weeks ago stepped on a nail that went through his shoe and punctured his foot. The patient does have some level of neuropathy and did not experience a significant amount of pain. However, did take note of this and he went a walk-in clinic where he was started on oral antibiotics. Subsequently after a week to two weeks after the intervention, the patient did notice some worsening of swelling, pain and purulence from this site. He presented to the hospital where a bedside incision and drainage was performed. At that time MRI was ordered. However the MRI was unable to be performed until it was approved on an outpatient basis through the [facility]. Once obtained, the MRI did demonstrate some indication of T2 uptake and 1 dropout indicative of osteomyelitis of the fifth metatarsal of the right foot as well as the base of the proximal phalanx. At this time the decision was made to proceed with bone debridement in the area of the ulceration in order to remove any purulence from the surgical site as well as obtain bone biopsy prior to decision making for whether we are going to try six to eight weeks of IV antibiotics versus plan for more aggressive measures. The patient understands all risks, complications and benefits of surgical intervention at this time including but not limited to infection, hematoma, seroma, possibility of delayed wound healing, nonwound healing and possible need for further surgical intervention at a later date. No guarantees were provided as to the outcome of surgical intervention. It is at this time we decided to proceed. DESCRIPTION OF PROCEDURE AND FINDINGS: The patient is brought into the OR and placed on the OR table in the supine position. At this time local block was performed under aseptic technique to the fifth metatarsal in a mini-Walker block of the right foot. Following this, the right foot was prepped and draped in the typical sterile fashion and lowered onto the surgical field. At this time, the two points from the puncture wound were connected. A linear incision utilizing a 15 blade and [place], this opened up a small pocket of abscess which went directly to the level of bone. The bone was assessed for quality and deemed to be relatively adequate. However, the decision was made given MRI to proceed with trocar bone biopsy this was performed at the fifth metatarsal head as well as the base of the proximal phalanx. Copious amounts of sterile saline were utilized to flush the surgical site. Vancomycin powder was then packed into the deficit and retention sutures were placed in an [id number] stitch type fashion to slightly close the area around fifth metatarsal. At this time, a dressing consisting of Betadine, Adaptic, 4x4, Kerlix and GENEVIEVE were then applied to the patient's right lower extremity. Pathology was sent off the field at this time for assessment and cultures were obtained. The patient was then returned to the postoperative anesthesia care unit with vital signs stable and vascular status intact. The patient handled the anesthesia as well as the procedure without significant complication. Postoperative orders as indicated in the patient's discharge chart.
== END 2023-10-04 14:05 | disposition home or self-care (01) ==
LOC: SDC 09:30
PROVIDERS: ATTEND Podiatrist Foot & Ankle Surgery
DX: M86.9 Osteomyelitis, unspecified (principal); S91.331A Puncture wound without foreign body, right foot, initial encounter; E11.9 Type 2 diabetes mellitus without complications; G62.9 Polyneuropathy, unspecified
CPT/HCPCS: 28005; 36415; 36573; 73630; 76000; 76937; 77001; 80053; 85027; 87046; 87070; 87075; 87116; 87206; C1769; J0690; J1642; J2001; J3370

== ENCOUNTER 2023-10-22 14:44 | Emergency (ER) | payer OTHER ==
[2023-10-22 15:03] VITALS: BP 151/117; PULSE 66; RESP 18; TEMP 97; O2SAT 97
[2023-10-22] MEDS ORDERED: SILVADENE 50 GM TP ONE ×2 (15:06→15:15)
--- NOTE | 2023-10-22 15:14 | ERPHSYRPT ---
- History of Present Illness Time Seen by Provider: 10/22/23 15:09 Source: patient Exam Limitations: no limitations Patient Subjective Stated Complaint: Wound check Triage Nursing Assessment: Patient ambulated back to ED and transferred self to bed. Patient A+O X 3. Patient's skin pink, warm and dry. Patient has healing wound to right outer foot beside 5th digit, which requires a dressing. Patient states he noticed his toe nail to 2nd digit was almost off and there was a fluid filled blister to 3rd digit and 1st digit. Patient denies pain or discomfort. Physician History: Patient has healing wound to right outer foot beside 5th digit, which requires a dressing. Patient states he noticed his toe nail to 2nd digit was almost off and there was a fluid filled blister to 3rd digit and 1st digit. Patient denies pain or discomfort. Method of Injury: unknown Occurred: just prior to arrival Severity of Pain-Max: none Severity of Pain-Current: none Lower Extremities Pain: 1st toe: right, 3rd toe: right Associated Symptoms: none Allergies/Adverse Reactions: No Known Drug Allergies Allergy (Verified 10/22/23 14:53) Home Medications: Metformin HCl [Metformin ER Osmotic] 1 tab PO BID 02/02/23 [History] Allopurinol 300 mg [Zyloprim 300 mg] 300 mg PO DAILY 10/04/23 [History] Alogliptin Benzoate [Alogliptin] 25 mg PO DAILY 10/04/23 [History] Aspirin EC 81 mg [Ecotrin 81 mg] 81 mg PO DAILY 10/04/23 [History] Hx Tetanus, Diphtheria Vaccination/Date Given: No Hx Influenza Vaccination/Date Given: No Hx Pneumococcal Vaccination/Date Given: No Immunizations Up to Date: Yes Travel Risk - International Travel Have you traveled outside of the country in past 3 weeks: No - Coronavirus Screening Are you exhibiting any of the following symptoms?: No Close contact with a COVID-19 positive Pt in past 14-21 Days: No - Vaccine Status Have you recieved a Covid-19 vaccination: Yes Investment Accounting Clerk: Moderna - Vaccination Dates Date of 2cond Vaccination (if applicable): ? - Review of Systems Constitutional: No Symptoms Eyes: No Symptoms Ears, Nose, & Throat: No Symptoms Respiratory: No Symptoms Cardiac: No Symptoms Abdominal/Gastrointestinal: No Symptoms Genitourinary Symptoms: No Symptoms Musculoskeletal: No Symptoms Skin: Cellulitis, Induration, Other (blisters) Neurological: Sensory Changes Psychological: No Symptoms Endocrine: No Symptoms Hematologic/Lymphatic: No Symptoms Immunological/Allergic: No Symptoms - Past Medical History Pertinent Past Medical History: No Neurological History: No Pertinent History ENT History: Cataracts Cardiac History: High Cholesterol Respiratory History: No Pertinent History Endocrine Medical History: Diabetes Type II Musculoskeletal History: No Pertinent History GI Medical History: No Pertinent History History: No Pertinent History Psycho-Social History: No Pertinent History Male Reproductive Disorders: No Pertinent History - Past Surgical History Past Surgical History: Yes Neuro Surgical History: No Pertinent History Cardiac: No Pertinent History Respiratory: No Pertinent History Gastrointestinal: Cholecystectomy Genitourinary: No Pertinent History Musculoskeletal: No Pertinent History Male Surgical History: No Pertinent History Other Surgical History: back surgery d/t infection - Social History Smoking Status: Light tobacco smoker Exposure to second hand smoke: Yes Drug Use: none Patient Lives Alone: No - Nursing Vital Signs Nursing Vital Signs: Initial Vital Signs Temperature 97.0 F 10/22/23 14:54 Pulse Rate 66 10/22/23 14:54 Respiratory Rate 18 10/22/23 14:54 Blood Pressure 151/117 10/22/23 14:54 O2 Sat by Pulse Oximetry 97 10/22/23 14:54 Pain Scale Pain Intensity 0 - Physical Exam General Appearance: alert Eyes, Ears, Nose, Throat Exam: moist mucous membranes Neck Exam: non-tender, supple Cardiovascular/Respiratory Exam: chest non-tender, normal breath sounds, regular rate/rhythm, no respiratory distress Gastrointestinal/Abdominal Exam: non-tender, guarding Back Exam: normal inspection, No vertebral tenderness Hips Exam: bilateral: non-tender Legs Exam: bilateral leg: non-tender Knees Exam: bilateral knee: non-tender Ankle Exam: bilateral ankle: non-tender Foot Exam: right foot: soft tissue tenderness Neuro/Tendon Exam: normal sensation, normal motor functions Mental Status Exam: alert, oriented x 3, cooperative Skin Exam: normal color, warm, dry, other (blisters on 1st and 3rd toe) SpO2 Interpretation: normal SpO2: 97 O2 Delivery: Room Air - Course Nursing assessment & vital signs reviewed: Yes Ordered Tests: Active Orders 24 hr Category Date Time Status Wound Care STAT Care 10/22/23 15:15 Active Medication Summary Discontinued Medications Generic Name Dose Route Start Last Admin Trade Name Freq PRN Reason Stop Dose Admin Silver Sulfadiazine Confirm 10/22/23 15:06 Silver Sulfadiazine 50 Gm Tube Administered 10/22/23 15:07 Dose 50 gm TP .STK-MED ONE - Progress Progress: unchanged Counseled pt/family regarding: diagnosis, need for follow-up Medical Desision Making - Risk of complications Minimal Risk: Minimal risk of morbidity - Departure Departure Disposition: Home Clinical Impression: Diabetic foot infection, Blister (nonthermal), right foot, initial encounter Diabetic neuropathy Qualifiers: Diabetes mellitus type: type 2 Diabetes mellitus complication detail: diabetic polyneuropathy Qualified Code(s): E11.42 - Type 2 diabetes mellitus with diabetic polyneuropathy Condition: Stable Critical Care Time: No Referrals: GORDON WORTHY FNP [Primary Care Provider] - Follow Up with PCP/3 days Instructions: Wound Care (DC), Diabetic Neuropathy (DC), Foot Care for Diabetics, Diabetes and infections, Diabetic Foot Ulcer (DC) Additional Instructions: Discharge/Care Plan TOMASA SHEPARD was seen on 10/22/23 in the Emergency Room. The patient was counseled regarding Diagnosis,Lab results, Imaging studies, need for follow up and when to return to the Emergency Room. Prescriptions given: Discharge Note I have spoken with the patient and/or caregivers. I have explained the patient's condition, diagnosis and treatment plan based on the information available to me at this time. I have answered the patient's and/or caregiver's questions and addressed any concerns. The patient and/or caregivers have as good understanding of the patient's diagnosis, condition and treatment plan as can be expected at this point. The vital signs have been stable. The patient's condition is stable and appropriate for discharge from the emergency department. The patient will pursue further outpatient evaluation with the primary care physician or other designated or consulting physician as outlined in the discharge instructions. The patient and/or caregivers are agreeable to this plan of care and follow-up instructions have been explained in detail. The patient and/or caregivers have received these instruction. The patient/and or caregivers are aware that any significant change in condition or worsening of symptoms should prompt an immediate return to this or the closest emergency department or call 911. TOMASA SHEPARD was seen on 10/22/23 n the Emergency Room. At that time you were treated for an emergent condition, during your visit Laboratory, Radiology and/or other procedures may have been ordered. It is very important that you follow-up with your Primary Care Physician KAREEM ROOT within the next 24-48 hours to review your Emergency Room visit and the final results of testing that was ordered. Some test results such as Urine Cultures, Blood Cultures, and other cultures if ordered will not be finalized for 24-48 hours. If you do not have a Primary Care Provider please call the medical records department at [phone] ext [phone] to obtain a copy of your results or you may sign into our patient portal to obtain these results by visiting us @ [email or web address] and completing the following steps: 1. Click on the Patient Portal link 2. Click the Patient Self Enrollment Link to complete the enrollment form and entering your 3. Once the enrollment form is completed you will receive an email with a temporary ID and password at the email address you provided. 4. Next choose a user name and password. Your user name must be at least 4 characters long and your password must be at least 4 characters long. 5. Choose a security question from the list and provide your answer to the question. If you already have signed into the Health Portal you may access your Health Care Information 16/05 by the following steps: 1. Login to our website @ [email or web address] 2. Enter your original user name and password. FAQS [facility] Health Portal is an online tool that contains your Lab Results, Radiology Reports, Visit History, Discharge Instructions and Health Summary Lab and Radiology Results will not be available for 72 hours on the portal. The Portal is a secure site, passwords are encryted and URLs are re-written so they cannot be copied and pasted. You and authorized family members are the only ones who can access your Portal. Also there is a timeout feature that protects your information if you leave the Portal page open. If you have technical difficulty please use the Contact Us link on the page this will allow you to submit any questions you have regarding the Portal or you may contact the Medical Record Department at [phone] ext [phone].
== END 2023-10-22 15:34 | disposition home or self-care (01) ==
LOC: ED 14:44
DX: S90.821A Blister (nonthermal), right foot, initial encounter (principal); L08.9 Local infection of the skin and subcutaneous tissue, unspecified; E11.42 Type 2 diabetes mellitus with diabetic polyneuropathy; E78.5 Hyperlipidemia, unspecified; Z79.84 Long term (current) use of oral hypoglycemic drugs; Z79.899 Other long term (current) drug therapy; Z72.0 Tobacco use
CPT/HCPCS: 99281; A9270-GY

== ENCOUNTER 2024-06-28 11:31 | Emergency (ER) | payer OTHER ==
[2024-06-28 11:38] VITALS: BP 152/85; PULSE 67; RESP 18; TEMP 97.3; O2SAT 96
--- NOTE | 2024-06-28 13:22 | XRAY ---
Indication: Pain following fall. Comparison: None 2 view left ribs demonstrates osteopenia, mild degenerative changes both shoulders, and mild multilevel thoracolumbar degenerative spondylosis. No acute fracture or suspicious bony lesions. Single PA chest slightly underinflated with minimal bibasilar discoid atelectasis/scarring. No infiltrate, consolidation, effusion, or pneumothorax. Heart not enlarged with tortuous descending aorta. Impression: Nonacute left ribs with chronic features. Nonacute underinflated chest.
--- NOTE | 2024-06-28 13:24 | XRAY ---
Indication: Pain following fall. Comparison: None 3 view right knee demonstrates osteopenia, mild/moderate tricompartmental degenerative changes greatest patellofemoral compartment, moderate scattered vascular calcifications greatest lower leg, anterior soft tissue swelling, and incidental tiny fabella. No other bony, articular, or soft tissue abnormalities.
--- NOTE | 2024-06-28 13:32 | ERPHSYRPT ---
- History of Present Illness Time Seen by Provider: 06/28/24 11:37 Source: patient Exam Limitations: no limitations Patient Subjective Stated Complaint: here for a fall Triage Nursing Assessment: pt here for a fall yesterday, he states he tripped on last step falling, co pain to right knee and left ribs. pt has swelling to right knee, no bruising noted, resp easy, walked in. skin w/d/p Physician History: 68 years old male presented in the ER with complaint of right knee and left- sided chest wall pain after he tripped on the very last step and fell forward. Hitting his right knee and left chest against the floor. Did not hit his head. No LOC. This happened yesterday. Patient reports gradually increasing swelling in the right knee and hurts to ambulate, moderate intensity sharp pain. Also reports some discomfort and pain with twisting in the left upper chest wall. No difficulty breathing otherwise. No palpitations or shortness of breath. No abdominal pain nausea or vomiting. No injury anywhere else. Allergies/Adverse Reactions: No Known Drug Allergies Allergy (Verified 06/28/24 11:37) Home Medications: Metformin HCl [Metformin ER Osmotic] 1 tab PO BID 02/02/23 [History] Allopurinol 300 mg [Zyloprim 300 mg] 300 mg PO DAILY 10/04/23 [History] Alogliptin Benzoate [Alogliptin] 25 mg PO DAILY 10/04/23 [History] Aspirin EC 81 mg [Ecotrin 81 mg] 81 mg PO DAILY 10/04/23 [History] Hx Tetanus, Diphtheria Vaccination/Date Given: No Hx Influenza Vaccination/Date Given: No Hx Pneumococcal Vaccination/Date Given: No Immunizations Up to Date: Yes Travel Risk - International Travel Have you traveled outside of the country in past 3 weeks: No - Emerging Infectious Disease Are you exhibiting symptoms associated with any current EIDs: No - Review of Systems Constitutional: No Symptoms Eyes: No Symptoms Ears, Nose, & Throat: No Symptoms Respiratory: No Symptoms Cardiac: Chest Pain Abdominal/Gastrointestinal: No Symptoms Genitourinary Symptoms: No Symptoms Musculoskeletal: Injury, Joint Pain, Joint Swelling Skin: No Symptoms Neurological: No Symptoms Endocrine: No Symptoms Hematologic/Lymphatic: No Symptoms - Past Medical History Pertinent Past Medical History: No Neurological History: No Pertinent History ENT History: Cataracts Cardiac History: High Cholesterol Respiratory History: No Pertinent History Endocrine Medical History: Diabetes Type II Musculoskeletal History: No Pertinent History GI Medical History: No Pertinent History History: No Pertinent History Psycho-Social History: No Pertinent History Male Reproductive Disorders: No Pertinent History - Past Surgical History Past Surgical History: Yes Neuro Surgical History: No Pertinent History Cardiac: No Pertinent History Respiratory: No Pertinent History Gastrointestinal: Cholecystectomy Genitourinary: No Pertinent History Musculoskeletal: No Pertinent History Male Surgical History: No Pertinent History Other Surgical History: back surgery d/t infection - Social History Smoking Status: Light tobacco smoker Exposure to second hand smoke: Yes Drug Use: none Patient Lives Alone: No - Social Determinants of Health Will the patient participate in the screening: Yes Do you worry about a steady place to live?: No Do you have any problems with any of the following?: No known problems In the past 12 months,have you had to go without utilities?: No Transportation Issues: No Has anyone in your support network made you feel unsafe?: No Have you or anyone in your house had to go without enough: No - Nursing Vital Signs Nursing Vital Signs: Initial Vital Signs Temperature 97.3 F 06/28/24 11:37 Pulse Rate 67 06/28/24 11:37 Respiratory Rate 18 06/28/24 11:37 Blood Pressure 152/85 06/28/24 11:37 O2 Sat by Pulse Oximetry 96 06/28/24 11:37 Pain Scale Pain Intensity 5 - Turner Coma Score Best Eye Response ([place]): (4) open spontaneously Best Verbal Response ([place]): (5) oriented Best Motor Response ([place]): (6) obeys commands Turner Total: 15 - Physical Exam General Appearance: no apparent distress, alert Head Injury: no evidence of injury Eye Exam: PERRL/EOMI, eyes nml inspection ENT Exam: airway nml, nml ext.inspection, No evidence of ENT injury, No dental injury Neck Exam: supple, trachea midline, full range of motion, normal alignment, normal inspection Respiratory/Chest Exam: chest tenderness (Will tenderness left anterolateral chest wall. No crepitus. No flail segment. No bruising.), normal breath sounds, No respiratory distress Cardiovascular Exam: normal heart sounds, regular rate/rhythm Gastrointestinal Exam: soft, normal bowel sounds, No tenderness Back Exam: normal inspection, normal range of motion Extremity Exam: normal range of motion, joint swelling (Right knee right knee), joint effusion, pain with movement, swelling, tenderness Neurologic Exam: alert, oriented x 3, cooperative, hair spring cutter II-XII nml as tested Skin Exam: normal color SpO2 Interpretation: normal SpO2: 96 O2 Delivery: Room Air Ordered Tests: Active Orders 24 hr Category Date Time Status KNEE (3 VIEWS) Stat Exams 06/28/24 12:23 Taken RIBS UNILATERAL W/ PA CXR Stat Exams 06/28/24 12:23 Taken - Progress Progress: unchanged Progress Note: 06/28/24 13:26 68 years old is evaluated in the ER after he tripped on the last step while going up stair and fell forward. Patient has swelling right knee with some clinical effusion. No significant bony tenderness. Intact range of motion. Also has some tenderness left anterolateral chest wall without flail segment or crepitus. Lungs clear to auscultation. X-rays rib series and chest are negative for any acute findings. X-rays right knee are negative for fracture d islocation. Placed in [place] wrap. Recommended weightbearing as tolerated and outpatient orthopedics follow-up. He is given [place] for symptomatic relief. Recommended taking Tylenol and ibuprofen, outpatient follow-up. Discussed signs symptoms of worsening needing return to ER which he seems understanding. Stable for discharge. Counseled pt/family regarding: diagnosis, need for follow-up, rad results Medical Desision Making - Diagnostic Testing Diagnostic test were ordered, analyzed, and reviewed by me: Yes Radiological Interpretation: Reviewed by me - Risk of complications The pt has a mod risk of morbidity or mortality based on: Need for prescription drug management - Departure Departure Disposition: Home Clinical Impression: Contusion of right knee, Strain of chest wall Condition: Stable Critical Care Time: No Referrals: GORDON WORTHY FNP [Primary Care Provider] - Follow up with PCP 1 day SHIVAM SOLOMON MD [ACTIVE STAFF] - Follow up/PCP as directed (Call for appointment for reevaluation) Instructions: Contusion (DC), Preventing falls in adults Additional Instructions: Intermittent ice application. Avoid exertional activities. Do deep breathing exercises. Take Tylenol/ibuprofen as needed. Follow-up with primary care and Ortho for reevaluation. Return to ER for any worsening of pain or if having difficulty breathing, increased swelling around knee etc. Prescriptions: Ibuprofen 600 mg PO Q6HPRN PRN 10 Days #20 tablet PRN Reason: Pain
[2024-06-28] MEDS ORDERED: NORCO 5/325 MG ONE (13:39)
[2024-06-28] MEDS: NORCO 5/325 MG PO ONE (13:45)
== END 2024-06-28 13:50 | disposition home or self-care (01) ==
LOC: ED 11:31
DX: S80.01XA Contusion of right knee, initial encounter (principal); S29.011A Strain of muscle and tendon of front wall of thorax, initial encounter; W10.9XXA Fall (on) (from) unspecified stairs and steps, initial encounter; E78.5 Hyperlipidemia, unspecified; E11.9 Type 2 diabetes mellitus without complications; Z79.84 Long term (current) use of oral hypoglycemic drugs; Z79.899 Other long term (current) drug therapy; Z72.0 Tobacco use
CPT/HCPCS: 71101; 73562; 99283; A9270-GY

== ENCOUNTER 2024-11-21 17:17 | Emergency (ER) | payer OTHER ==
[2024-11-21 18:53] VITALS: TEMP 97.7; O2SAT 93
--- NOTE | 2024-11-21 19:38 | ERPHSYRPT ---
- History of Present Illness Time Seen by Provider: 11/21/24 19:38 Source: patient Exam Limitations: no limitations Patient Subjective Stated Complaint: C/O left eye itching, irritation for almost a week. Denies any changes in vision. Denies trauma. Triage Nursing Assessment: Patient ambulated back to ER. He is alert and oriented. Scant amount of yellow drainage to inner corner of left eye. Red conjunctiva. Physician History: This is a 69-year-old white male patient who is diabetic and has a history of gout and has had cataract surgery in the past presents with 1 week history of redness to both eyelids on the left side with some mild purulent localized drainage and conjunctivitis. He has not had any flulike symptoms. Timing/Duration: week(s) (1) Location: left eye Severity: mild Apparent Injury: no Associated Symptoms: itching, redness, matting, No sensitivity to light, No foreign body sensation, No decreased vision, No blurred vision Visual Assistive Devices: None Chemical Exposure: No Trauma: No Welding Arc/Tanning Bed Exposure: No Allergies/Adverse Reactions: No Known Drug Allergies Allergy (Verified 06/28/24 11:37) Home Medications: Metformin HCl [Metformin ER Osmotic] 1 tab PO BID 02/02/23 [History] Allopurinol 300 mg [Zyloprim 300 mg] 300 mg PO DAILY 10/04/23 [History] Alogliptin Benzoate [Alogliptin] 25 mg PO DAILY 10/04/23 [History] Aspirin EC 81 mg [Ecotrin 81 mg] 81 mg PO DAILY 10/04/23 [History] Hx Tetanus, Diphtheria Vaccination/Date Given: Yes Hx Influenza Vaccination/Date Given: No Hx Pneumococcal Vaccination/Date Given: No Immunizations Up to Date: Yes Travel Risk - International Travel Have you traveled outside of the country in past 3 weeks: No - Emerging Infectious Disease Are you exhibiting symptoms associated with any current EIDs: No - Review of Systems Constitutional: No Symptoms Eyes: Discharge (Medial localized pinpoint discharge it is purulent), Eye Pain, Itchy, No Photophobia, No Tearing, No Vision Changes, No Double Vision, No Foreign Body Sensation Ears, Nose, & Throat: No Symptoms Respiratory: No Symptoms Cardiac: No Symptoms Abdominal/Gastrointestinal: No Symptoms Genitourinary Symptoms: No Symptoms Musculoskeletal: No Symptoms Skin: No Symptoms Neurological: No Symptoms Psychological: No Symptoms Endocrine: No Symptoms Hematologic/Lymphatic: No Symptoms Immunological/Allergic: No Symptoms All Other Systems: Reviewed and Negative - Past Medical History Pertinent Past Medical History: Yes Neurological History: Peripheral Neuropathy ENT History: Cataracts Cardiac History: High Cholesterol Respiratory History: No Pertinent History Endocrine Medical History: Diabetes Type II Musculoskeletal History: No Pertinent History GI Medical History: No Pertinent History History: No Pertinent History Psycho-Social History: No Pertinent History Male Reproductive Disorders: No Pertinent History - Past Surgical History Past Surgical History: Yes Neuro Surgical History: No Pertinent History Cardiac: No Pertinent History Respiratory: No Pertinent History Gastrointestinal: Cholecystectomy Genitourinary: No Pertinent History Musculoskeletal: No Pertinent History Male Surgical History: No Pertinent History Other Surgical History: back surgery d/t infection - Social History Smoking Status: Light tobacco smoker Exposure to second hand smoke: Yes Drug Use: none Patient Lives Alone: No - Social Determinants of Health Will the patient participate in the screening: Declined to provide - Nursing Vital Signs Nursing Vital Signs: Initial Vital Signs Temperature 97.7 F 11/21/24 18:42 Pulse Rate 84 11/21/24 18:42 Respiratory Rate 21 11/21/24 18:42 Blood Pressure 139/89 11/21/24 18:42 O2 Sat by Pulse Oximetry 93 L 11/21/24 18:42 Pain Scale Pain Intensity 0 - Physical Exam General Appearance: no apparent distress, alert, anxiety Eye Exam: right eye: normal inspection, left eye: conjunctival inflammation, exudate (Medial corner), eyelid inflammation, bilateral eye: PERRL, EOMI Ears, Nose, Throat Exam: normal ENT inspection, pharynx normal, moist mucous membranes Neck Exam: normal inspection, non-tender, supple, full range of motion Respiratory Exam: airway intact, No chest tenderness, No respiratory distress Gastrointestinal Exam: No tenderness Extremity Exam: normal inspection, normal range of motion, pelvis stable Neurologic: alert, oriented x 3, cooperative, dry room attendant II-XII nml as tested, normal mood/affect, nml cerebellar function, nml station & gait, sensation nml Skin Exam: normal color, warm, dry Lymphatic: No adenopathy SpO2 Interpretation: borderline oxygenation SpO2: 93 O2 Delivery: Room Air - Course Nursing assessment & vital signs reviewed: Yes Ordered Tests: Medication Summary Generic Name Dose Route Start Last Admin Trade Name Freq PRN Reason Stop Dose Admin Neomycin/Polymyxin/Hydrocortisone 7.5 ml 11/21/24 20:15 Neomy Sulf/Polymyx B Sulf/Hc 7.5 Ml Bottle OP 12/21/24 20:14 3-4XD SINDHU Discontinued Medications Generic Name Dose Route Start Last Admin Trade Name Romy PRN Reason Stop Dose Admin Prednisone 20 mg 11/21/24 20:14 Prednisone 20 Mg Tablet PO 11/21/24 20:15 STAT ONE - Progress Progress: unchanged Progress Note: 11/21/24 20:20 My medical decision making and the assignment of low complexity to this patient's medical issue today is based on review of the patient's past medical history, review the patient's medication list, reviewed patient drug allergy list, history present illness and physical findings on examination. The workup in this patient does not require laboratory radiographic studies. Counseled pt/family regarding: diagnosis, need for follow-up Medical Desision Making - Diagnostic Testing Diagnostic test were ordered, analyzed, and reviewed by me: No - Risk of complications The pt has a mod risk of morbidity or mortality based on: Need for prescription drug management - Departure Departure Disposition: Home Clinical Impression: Conjunctivitis, Inflammation of left eyelid Condition: Stable Critical Care Time: No Referrals: [facility] [employer] [Primary Care Provider] - Follow up/PCP as directed Additional Instructions: Warm compresses to left eye 3-4 times a day for the next 3 to 4 days. Call an kiss machine operator/pewter fabricator tomorrow, 11/22/2024, to make a follow-up appointment to be seen in the next 3 to 5 days for reassessment. Return to the emergency department if symptoms worsen. Prescriptions: Reese/Poly/Hc Eye Drops [Cortisporin Eye Drops] 7.5 ml OP Q4-6HPRN #7.5 ml Prednisone 10 mg [Deltasone 10 mg] 10 mg PO TID #12 tablet
[2024-11-21] MEDS ORDERED: DELTASONE 20 MG ONE (20:24)
[2024-11-21] MEDS ORDERED: Cortisporin Eye Drops OP ONE (20:24)
[2024-11-21] MEDS: DELTASONE 20 MG PO ONE (20:26)
[2024-11-21] MEDS: Cortisporin Eye Drops OP SCH (20:28)
[2024-11-21 20:41] VITALS: BP 120/83; PULSE 97; RESP 18
== END 2024-11-21 20:55 | disposition home or self-care (01) ==
LOC: ED 17:17
DX: H10.9 Unspecified conjunctivitis (principal); H01.9 Unspecified inflammation of eyelid; E11.42 Type 2 diabetes mellitus with diabetic polyneuropathy; E78.5 Hyperlipidemia, unspecified; Z79.85 Long-term (current) use of injectable non-insulin antidiabetic drugs; Z79.52 Long term (current) use of systemic steroids; Z79.899 Other long term (current) drug therapy; Z72.0 Tobacco use
CPT/HCPCS: 99282; 99283; A9270-GY